=== PATIENT | female | born 1975 | race Caucasian/White ===

== ENCOUNTER 2019-08-22 14:35 | Outpatient (CLI) | payer OTHER, SELFPAY ==
--- NOTE | ~2019-08-22 | MM_ITS ---
EXAMINATION: MM screening [facility] BI w danuta HISTORY: Screening mammogram TECHNIQUE: Craniocaudal and mediolateral oblique 3-D tomosynthesis images were obtained and synthetic 2-D images were generated. CAD analysis was submitted and interpreted. COMPARISON: Comparison to multiple prior studies sequentially, with oldest reviewed study dated 10/2013. BREAST PARENCHYMAL COMPOSITION: There are scattered areas of fibroglandular density. FINDINGS: There is no evidence of suspicious mass, calcification, or architectural distortion to sugg est malignancy in either breast. There has been no suspicious interval change. IMPRESSION: 1. No mammographic evidence of malignancy. 2. Recommend routine screening mammography in one year. BI-RADS Category 1: Negative Reviewed, dictated and finalized at location A.
== END 2019-08-22 14:36 | disposition home or self-care (01) ==
LOC: ANHIMG 14:38
PROVIDERS: PCP Physician Assistant; Visit Provider Nurse Practitioner Family
DX: Z12.31 Encounter for screening mammogram for malignant neoplasm of breast (principal)
CPT/HCPCS: 77063; 77067

== ENCOUNTER 2019-09-06 12:43 | Outpatient (CLI) | payer OTHER, SELFPAY ==
--- NOTE | ~2019-09-06 | XR_ITS ---
XR knee LT 3V DATE: 09/06/2019 13:02 INDICATION: Acute left knee pain at lateral aspect of the patella. No injury. TECHNIQUE: 3 views including sunrise COMPARISON: None FINDINGS: No fracture or dislocation or joint effusion. No periosteal reaction or bone destruction. J oint spaces are preserved. No radiopaque intra-articular loose body or chondrocalcinosis. IMPRESSION: Negative Reviewed, dictated and finalized at location A. IMPRESSION: Negative
== END 2019-09-06 12:44 | disposition home or self-care (01) ==
LOC: ANHIMG 12:47
PROVIDERS: PCP Physician Assistant; Visit Provider Physician Assistant
DX: M25.562 Pain in left knee (principal)
CPT/HCPCS: 73562

== ENCOUNTER → 2019-09-27 10:46 | Outpatient (CLI) | payer OTHER, SELFPAY ==
--- NOTE | ~2019-09-27 | US_ITS ---
EXAMINATION: US transvaginal DATE: 09/27/2019 11:28 INDICATION: Pelvic pain. Suboptimal examination. Comparison:No prior studies for comparison. TECHNIQUE: Multiple transabdominal and endovaginal sonographic images of the pelvis performed. FINDINGS: The uterus measures 9.2 x 5 x 5.8 cm. The endometrial complex measures 7 mm. The right ovary measures 3.3 x 1.7 x 2.5 cm and the left ovary measures 2.4 x 1.8 x 2.4 cm. There ar e small follicles in each ovary. There is no free fluid in the pelvis. There are no abnormal masses seen on either side. IMPRESSION: 1. Normal pelvic ultrasound. Reviewed, dictated and finalized at location B.
== END ==
PROVIDERS: Visit Provider Nurse Practitioner
DX: R10.9 Unspecified abdominal pain (principal)
CPT/HCPCS: 76830

== ENCOUNTER → 2020-06-08 09:15 | Outpatient (CLI) | payer OTHER, SELFPAY ==
--- NOTE | ~2020-06-08 | MM_ITS ---
EXAMINATION: MM diagnostic nellie RT w danuta HISTORY: Pain in the subareolar aspect of the right breast TECHNIQUE: Craniocaudal, mediolateral, and mediolateral oblique 3-D tomosynthesis images of the right breast were performed and synthetic 2-D images were generated. CAD analysis was submitted and interp reted. High resolution limited right breast ultrasound was performed. COMPARISON: 08/22/2019, 07/23/2018, 07/08/2017 BREAST PARENCHYMAL COMPOSITION: There are scattered areas of fibroglandular density. FINDINGS: MAMMOGRAPHIC FINDINGS: There is no evidence of suspicious mass, calcification, or architectural distortion to suggest ming carr. There has been no suspicious interval change. No mammographic correlate is identified for the reported right breast pain. ULTRASOUND: There is no evidence of focal abnormal solid or cystic mass in the vicinity of the patient's reported breast pain. IMPRESSION: 1. No specific mammographic or sonographic correlate is identified for the patient's reported right b reast pain. Further evaluation at this time should be based on clinical assessment. Continued follow- up physical examination is recommended. 2. Routine screening mammography is recommended, due in three months on the left. BI-RADS Category 1: Negative Reviewed, dictated and finalized at location A. IMPRESSION: 1. No specific mammographic or sonographic correlate is identified for the carito ent's reported right breast pain. Further evaluation at this time should be bas ed on clinical assessment. Continued follow-up physical examination is recommen ded. 2. Routine screening mammography is recommended, due in three months on the lef t. BI-RADS Category 1: Negative
== END ==
PROVIDERS: Visit Provider Nurse Practitioner
DX: N64.4 Mastodynia (principal)
CPT/HCPCS: 76642; 77061; 77065; G0279

== ENCOUNTER → 2020-10-02 16:54 | Outpatient (CLI) | payer OTHER, SELFPAY ==
--- NOTE | ~2020-10-02 | MM_ITS ---
EXAMINATION: MM screening nellie BI w danuta HISTORY: Screening TECHNIQUE: Craniocaudal and mediolateral oblique 3-D tomosynthesis images were obtained and synthetic 2-D images were generated. CAD analysis was submitted and interpreted. COMPARISON: Comparison to multiple prior studies sequentially, with oldest reviewed study dated 11/28. BREAST PARENCHYMAL COMPOSITION: There are scattered areas of fibroglandular density. FINDINGS: There is no evidence of suspicious mass, calcification, or architectural distortion to sugg est malignancy in either breast. There has been no suspicious interval change. IMPRESSION: 1. No mammographic evidence of malignancy. 2. Recommend routine screening mammography in one year. BI-RADS Category 1: Negative Reviewed, dictated and finalized at location A.
== END ==
PROVIDERS: Visit Provider Nurse Practitioner
DX: Z12.31 Encounter for screening mammogram for malignant neoplasm of breast (principal)
CPT/HCPCS: 77063; 77067

== ENCOUNTER → 2021-03-06 09:03 | Outpatient (CLI) | payer OTHER, SELFPAY ==
--- NOTE | ~2021-03-06 | MR_ITS ---
EXAMINATION: MR foot RT wo/w con DATE: 03/06/2021 10:13 INDICATION: Ganglion cyst of the right foot and ankle. 3 months of right third toe pain. TECHNIQUE: Magnetic resonance imaging (MRI) of the right fore/mid foot was performed without and with 15 mL Multihance intravenous contrast. Sequences included axial, sagittal and coronal T1-weighted FS E, axial and coronal T2-weighted FS FSE, sagittal fluid sensitive FSE STIR, axial T1-weighted FS FSE and postcontrast T1-weighted FS FSE. COMPARISON: None FINDINGS: Bone alignment is normal. No fracture or pathologic marrow replacing process. Mild to moderate osteoa rthritis at the calcaneocuboid articulation with subarticular edema and cystlike changes underlying t he articular surface of the cuboid. Additional mild osteoarthritis at the first metatarsophalangeal j oint. Remaining joint spaces appear relatively preserved. No joint effusions, tenosynovitis, ganglion cyst or other abnormal fluid collections. Visualized portions of the flexor and extensor tendons are normal. The Lisfranc ligament complex as well as the lateral ligament complex at the intertarsal pha langeal and interphalangeal joints are normal. No asymmetric atrophy or abnormal signal of the intrin sic musculature of the foot. No abnormally enhancing masses identified. IMPRESSION: 1. 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 No etiology identified for reported chronic pain at the right third toe. Reviewed, dictated and finalized at [facility]. 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 Osteoarthritis, moderate at the calcaneocuboid joint and mild at the first m etatarsophalangeal joint. No etiology identified for reported chronic pain at t he right third toe.
== END ==
PROVIDERS: PCP Physician Assistant; Visit Provider Podiatrist Foot & Ankle Surgery
DX: M67.471 Ganglion, right ankle and foot (principal); S93.402A Sprain of unspecified ligament of left ankle, initial encounter; M19.071 Primary osteoarthritis, right ankle and foot
CPT/HCPCS: 73720; A9577

== ENCOUNTER → 2021-10-15 15:49 | Outpatient (CLI) | payer OTHER, SELFPAY ==
--- NOTE | ~2021-10-15 | MM_ITS ---
EXAMINATION: MM screening [facility] BI w danuta HISTORY: Screening TECHNIQUE: Craniocaudal and mediolateral oblique 3-D tomosynthesis images were obtained and synthetic 2-D images were generated. CAD analysis was submitted and interpreted. COMPARISON: Comparison to multiple prior studies sequentially, with oldest reviewed study dated 08/2016. BREAST PARENCHYMAL COMPOSITION: There are scattered areas of fibroglandular density. FINDINGS: There is no evidence of suspicious mass, calcification, or architectural distortion to sugg est malignancy in either breast. There has been no suspicious interval change. IMPRESSION: 1. No mammographic evidence of malignancy. 2. Recommend routine screening mammography in one year. BI-RADS Category 1: Negative Reviewed, dictated and finalized at location A.
== END ==
PROVIDERS: PCP Physician Assistant; Visit Provider Obstetrics & Gynecology Gynecology
DX: Z12.31 Encounter for screening mammogram for malignant neoplasm of breast (principal)
CPT/HCPCS: 77063; 77067

== ENCOUNTER → 2022-12-04 12:33 | Outpatient (CLI) | payer OTHER, SELFPAY ==
--- NOTE | ~2022-12-04 | MM_ITS ---
EXAMINATION: MM screening nellie BI w danuta HISTORY: Screening TECHNIQUE: Craniocaudal and mediolateral oblique 3-D tomosynthesis images were obtained and synthetic 2-D images were generated. CAD analysis was submitted and interpreted. COMPARISON: Comparison to multiple prior studies sequentially, with oldest reviewed study dated 07/08. BREAST PARENCHYMAL COMPOSITION: There are scattered areas of fibroglandular density. FINDINGS: There are new masses in the lower inner quadrant of the right breast anteriorly. The left b reast is stable without evidence for malignancy. IMPRESSION: 1. New right breast masses, lower inner quadrant. 2. Additional mammographic views and possible breast ultrasound are recommended. BI-RADS Category 0: Incomplete: Needs additional imaging evaluation. Reviewed, dictated and finalized at location A. IMPRESSION: 1. New right breast masses, lower inner quadrant. 2. Additional mammographic views and possible breast ultrasound are recommended . BI-RADS Category 0: Incomplete: Needs additional imaging evaluation.
== END ==
PROVIDERS: PCP Physician Assistant; Visit Provider Nurse Practitioner
DX: Z12.31 Encounter for screening mammogram for malignant neoplasm of breast (principal); R92.8 Other abnormal and inconclusive findings on diagnostic imaging of breast
CPT/HCPCS: 77063; 77067

== ENCOUNTER → 2022-12-30 14:15 | Outpatient (CLI) | payer OTHER, SELFPAY ==
--- NOTE | ~2022-12-30 | MMUS_ITS ---
EXAMINATION: MM diagnostic nellie RT w danuta, US breast RT limited HISTORY: Follow-up right breast mass TECHNIQUE: Additional 3-D tomosynthesis images of the right breast were performed and synthetic 2-D i mages were generated. CAD analysis was submitted and interpreted. High resolution Limited right breas t ultrasound was performed. COMPARISON: 12/04/2022 BREAST PARENCHYMAL COMPOSITION: Breast composed of scattered areas of fibroglandular density FINDINGS: MAMMOGRAPHIC FINDINGS: There is a focal mass in the lower inner quadrant of the right breast. There is a possible second mas s in the same quadrant nearby. There are no suspicious calcifications or architectural distortion. ULTRASOUND: Limited right breast ultrasound: At 3:00, 5 cm from the nipple, there is a 5 mm cyst. No other discre te solid or cystic masses are seen. IMPRESSION: 1. Benign cyst corresponds to mass in the lower inner quadrant of the right breast. Possible addition al mass without sonographic correlate at nearby location in the lower inner quadrant. 2. Recommend 6 month follow-up diagnostic right mammogram and ultrasound recommended. BI-RADS category 3, probably benign findings. Reviewed, dictated and finalized at location A. IMPRESSION: 1. Benign cyst corresponds to mass in the lower inner quadrant of the right pepe ast. Possible additional mass without sonographic correlate at nearby location in the lower inner quadrant. 2. Recommend 6 month follow-up diagnostic right mammogram and ultrasound recomm ended. BI-RADS category 3, probably benign findings.
== END ==
PROVIDERS: PCP Physician Assistant; Visit Provider Obstetrics & Gynecology Gynecology
DX: R92.8 Other abnormal and inconclusive findings on diagnostic imaging of breast (principal)
CPT/HCPCS: 76642; 77061; 77065; G0279

== ENCOUNTER → 2023-01-16 10:40 | Outpatient (CLI) | payer OTHER, SELFPAY ==
--- NOTE | ~2023-01-16 | US_ITS ---
EXAMINATION: US pelvic complete DATE: 01/16/2023 11:02 INDICATION: Enlarged uterus Comparison:09/27/2019 TECHNIQUE: Multiple transabdominal and endovaginal sonographic images of the pelvis performed. FINDINGS: The uterus measures 10.1 x 5.2 x 6 cm. The endometrial complex measures 5 mm. The right ovary measures 3.4 x 2 x 2.8 cm and the left ovary measures 2 x 1.2 x 1.7 cm. There are sm all follicles in each ovary. Normal doppler signal in both ovaries. There is no free fluid in the pelvis. There are no abnormal masses seen on either side. IMPRESSION: 1. Unremarkable pelvic ultrasound. Reviewed, dictated and finalized at location A.
== END ==
PROVIDERS: PCP Physician Assistant; Visit Provider Nurse Practitioner
DX: R10.2 Pelvic and perineal pain (principal); N85.2 Hypertrophy of uterus
CPT/HCPCS: 76856

== ENCOUNTER → 2023-05-15 11:20 | Outpatient (CLI) | payer OTHER, SELFPAY ==
--- NOTE | ~2023-05-15 | US_ITS ---
EXAMINATION: US transvaginal DATE: 05/15/2023 11:44 INDICATION: Pelvic pain. TECHNIQUE: Multiple transvaginal sonographic images of the pelvis were obtained. COMPARISON: Ultrasound 01/16/2023 FINDINGS: The uterus measures 9.1 x 5.1 x 5.5 cm. There is no free fluid in the pelvis. The endometrial complex measures 6 mm in thickness. The right ovary measures 2.4 x 2.1 x 2.6 cm. The left ovary measures 3.4 x 2.4 x 3.2 cm. There is normal vascular flow in the ovaries. IMPRESSION: 1. Normal pelvis. Reviewed, dictated and finalized at location A. 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 Normal pelvis.
== END ==
PROVIDERS: PCP Nurse Practitioner; Visit Provider Nurse Practitioner
DX: R10.2 Pelvic and perineal pain (principal)
CPT/HCPCS: 76830

== ENCOUNTER 2023-06-26 08:40 | Outpatient (CLI) | payer OTHER, SELFPAY ==
--- NOTE | ~2023-06-26 | MMUS_ITS ---
EXAMINATION: MM diagnostic nellie RT w danuta, US breast RT complete HISTORY: Follow-up right breast masses TECHNIQUE: Additional 3-D tomosynthesis images of the right breast were performed and synthetic 2-D i mages were generated. CAD analysis was submitted and interpreted. High resolution complete right jackie st ultrasound was performed. COMPARISON: Comparison to multiple prior studies sequentially, with oldest reviewed study dated 04/2021. BREAST PARENCHYMAL COMPOSITION: Not dense: There are scattered areas of fibroglandular density. FINDINGS: MAMMOGRAPHIC FINDINGS: There are masses in the lower inner quadrant of the right breast with similar appearance to 12/04/2022 examination. No new masses, calcifications or architectural distortion in the right breast to sugges t malignancy. ULTRASOUND: Complete US of all 4 quadrants of the right breast and retroareolar region was reviewed. At 1:00, 4 c m from the nipple there is a 3 mm cyst. At 3:00, 5 cm from the nipple, there is a 5 mm cyst. At 3:00, 3 cm from the nipple, there is a 4 mm cyst. At 3:00, 2 cm from the nipple, there is a 3 mm cyst. At 10:00, 12 cm from the nipple, there is an intramammary lymph node measuring 5 mm. No suspicious jill s to suggest malignancy. IMPRESSION: 1. No evidence for malignancy in the right breast. Benign findings. 2. Routine yearly screening mammogram and regular clinical breast examination are recommended. BI-RADS Category 2: Benign finding(s). Reviewed, dictated and finalized at location A. IMPRESSION: 1. No evidence for malignancy in the right breast. Benign findings. 2. Routine yearly screening mammogram and regular clinical breast examination a re recommended. BI-RADS Category 2: Benign finding(s).
== END 2023-06-26 08:41 ==
LOC: MICIMG 08:41
PROVIDERS: PCP Physician Assistant; Visit Provider Nurse Practitioner
DX: R92.8 Other abnormal and inconclusive findings on diagnostic imaging of breast (principal)
CPT/HCPCS: 76641; 77061; 77065; G0279

== ENCOUNTER 2024-02-17 08:54 | Outpatient (CLI) | payer OTHER, SELFPAY ==
--- NOTE | ~2024-02-17 | MMUS_ITS ---
EXAMINATION: MM diagnostic nellie RT w danuta, US breast RT limited HISTORY: Follow-up right breast mass TECHNIQUE: Additional 3-D tomosynthesis images of the right breast were performed and synthetic 2-D i mages were generated. CAD analysis was submitted and interpreted. High resolution Limited right breas t ultrasound was performed. COMPARISON: Comparison to multiple prior studies sequentially, with oldest reviewed study dated 10/02. BREAST PARENCHYMAL COMPOSITION: Not dense: There are scattered areas of fibroglandular density. FINDINGS: MAMMOGRAPHIC FINDINGS: There is a cluster of nodular asymmetries medially in the right breast on spot CC view, although only one discrete mass is seen in the lower aspect of the right breast on MLO and mediolateral views. The re are no suspicious calcifications or architectural distortion. ULTRASOUND: Limited right breast ultrasound: At 3:00, 3 cm from the nipple, there is a 7 mm cyst corresponding to the mammographic finding. No other masses are identified. IMPRESSION: 1. Benign cyst measuring 7 mm identified at 3:00, 3 cm from the nipple corresponding to mass seen on mammography. Additionally asymmetries in the right breast medially are likely benign. 2. Recommend 6 month follow-up diagnostic right mammogram BI-RADS category 3, probably benign findings. Reviewed, dictated and finalized at location B. 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 Benign cyst measuring 7 mm identified at 3:00, 3 cm from the nipple correspo nding to mass seen on mammography. Additionally asymmetries in the right breast medially are likely benign. 2. Recommend 6 month follow-up diagnostic right mammogram BI-RADS category 3, probably benign findings.
== END 2024-02-17 08:55 | disposition home or self-care (01) ==
PROVIDERS: PCP Physician Assistant; Visit Provider Obstetrics & Gynecology Gynecology
DX: R92.8 Other abnormal and inconclusive findings on diagnostic imaging of breast (principal); N60.01 Solitary cyst of right breast; N64.89 Other specified disorders of breast
CPT/HCPCS: 76642; 77061; 77065; G0279

== ENCOUNTER 2024-08-05 10:17 | Outpatient (CLI) | payer OTHER, SELFPAY ==
--- OUTSIDE RECORDS SUMMARY | 2024-08-05 10:22 | XMS_ITS | Clinical Summary ---
Author Organization [facility] Address [address] [place] [address] Care Team Providers Care Motel Maid Name Role Phone Unavailable Primary Care Provider Unavailabl e Source Comments [facility],non-owned Affiliates and Associated Physician Practices is amultiple site organization consisting of ambulatory clinics and hospital sitesin [place], [place], [place] and [place]. This disclosure is being madepursuant to the Care Everywhere program and may not contain all information available regarding this patient. Last updated 17.[facility] Allergies Active Allergy Reactions Criticality Noted Date Comments Pseudoephedrine Sulfate Other High 04/16/2012 Blood pressure rises with Sudafed Medications * Be aware that medications may not be up to date on this document. Alwaysverify current medications with the patient. No known medications Social History Tobacco Use Types Packs/Day Years Used Date Smoking Tobacco: Never Smokeless Tobacco: Never Alcohol Use Standard Drinks/Week Comments Never 0 (1 standard drink = 0.6 oz pur e alcohol) Comments No Sex and Gender Information Value Date Recorded Sex Assigned at Not on file Legal Sex Female 11:57 AM CDT Gender Identity Not on file Sexual Orientation Not on file Last Filed Vital Signs Vital Sign Reading Time Taken Comments Blood Pressure 131/74 10/05/2020 11:15 PM CDT Pulse 68 10/05/2020 11:15 PM CDT Temperature 36.8 C (98.2 F) 10/05/2020 9:53 PM CDT Respiratory Rate 20 10/05/2020 11:15 PM CDT Oxygen Saturation 98% 10/05/2020 11:15 PM CDT Inhaled Oxygen Concentration - - Weight 74.6 kg (164 lb 7.4 oz) 10/05/2020 9:53 P M CDT Height 157.5 cm (5' 2 ) 10/05/2020 9:53 PM CDT Body Mass Index 30.08 10/05/2020 9:53 PM CDT Plan of Treatment Health Maintenance Due Date Last Done Comments COLOGUARD (AGES 45-75) - COLON CA SCREENING 1976 COLON MONITORING 1976 COLONOSCOPY - COLON CA SCREENING 1976 CT COLONOGRAPHY - COLON CA SCREENING 1976 Colorectal Cancer Screening 1976 FIT - COLON CA SCREENING 1976 FLEX SIG - COLON CA SCREENING 1976 LIPID TESTING 1976 MAMMOGRAM 1976 HIV SCREENING 06/18/1991 HEPATITIS C SCREENING 06/13/1994 DTAP/TDAP/TD VACCINES (1 - Tdap) 06/18/1995 HEPATITIS B VACCINE (1 of 3 - 19+ 3-dose series) 06/18/1995 COVID-19 VACCINE (1 - season) 2023 DEPRESSION SCREENING 03/16/2024 INFLUENZA VACCINE (Season Ended) 2024 12/23/2019, 01/03/2019, 01/12/2018, Additional history exists ZOSTER VACCINE (1 of 2) 2026 HIB VACCINE Aged Out No longer eligi ble based on patient's age to complete this topic HPV VACCINE Aged Out No longer eligi ble based on patient's age to complete this topic MENINGOCOCCAL (Group B) VACCINE SHARED DECISION-MAKING Aged Out No longer eligible based on patient's age to complete this topic MENINGOCOCCAL GROUPS A/C/Y/W VACCINE Aged Out No longer eligible based on patient's age to complete this topic PNEUMOCOCCAL VACCINE Aged Out No long er eligible based on patient's age to complete this topic Insurance [facility]
--- OUTSIDE RECORDS SUMMARY | 2024-08-05 10:22 | XMS_ITS | Referral Summary ---
Author Organization [facility] [place] [address] [place] [address] [place] [id number] Care Team Providers Care Rotary Cutter Operator Name Role Phone Lori Shaw Primary Care Provider [phone] Cooper Marquis MD [phone] Encounters Date Type Department Care Team Description 07/13/2024 Nurse Triage [address] [place] [phone] Lori Shaw PA 07/08/2024 Nurse Triage [address] [place] [phone] Lori Shaw PA 07/05/[address] [place] [phone] Lori Shaw PA Symptom Based Call 05/10/2024 9:00 AM AIR TWIST OPERATOR Office Visit [address] [place] [phone] Lori Shaw PA Acquired hypothyroidism (Primary Dx); Pre-diabetes; Mixed hyperlipidemia; Essential hypertension; Morbid obesity (HCC); BMI 36.0-36.9,adult from Last 3 Months Allergies No known active allergies Medications ACCU-CHEK SOFTCLIX LANCETS lancets CHECK BLOOD GLUCOSE ONCE A DAY 3 9 Active cholecalciferol (VITAMIN D-3) 2000 unit capsule 1 capsule (2,000 Units total) daily Active multivit with min-folic acid 200 mcg tablet,chewable Rx: Multivitamin Adult - Tablet Active vitamin E (AQUASOL E) 200 unit capsule Take 1 capsule (200 Units total) by mouth daily Active cetirizine (ZyrTEC) 10 mg chewable tablet Take 1 tablet (10 mg total) by mouth daily Active meloxicam (MOBIC) 15 mg tablet Take 1 tablet (15 mg total) by mouth daily 90 tablet 1 4 Active Accu-Chek Guerita Plus test strp stripIndication s:Pre-diabetes USE TO CHECK BLOOD GLUCOSE DAILY 100 strip 3 4 Active levothyroxine (SYNTHROID) 75 mcg tablet Take 1 tablet (75 mcg total) by mouth 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 The BMI is above average. BMI management plan is completed. BMI Follow-up includes: nutrition counseling, exercise counseling and education provided. Patient has an obesity-related condition (not limited to: hypertension, obstructive sleep apnea, osteoarthritis, hyperlipidemia, diabetes, etc.). Therefore, morbid obesity may be documented for patients with a BMI between 35.00-39.99. Assessment & Plan (05/15/2024 8:54 PM AIR TWIST OPERATOR): Discussed the patient's BMI. The BMI is above average. BMI management plan is completed. BMI Follow-up includes: nutrition counseling, exercise counseling and education provided. Patient has an obesity-related condition (not limited to: hypertension, obstructive sleep apnea, osteoarthritis, hyperlipidemia, diabetes, etc.). Therefore, morbid obesity may be documented for patients with a BMI between 35.00-39.99. HUNTER positive 07/16/2023 Assessment & Plan (05/15/2024 8:52 PM AIR TWIST OPERATOR): Continue to follow with [facility]. Assessment & Plan (03/17/2024 11:31 AM AIR TWIST OPERATOR): Sidra is a pleasant 48-year-old female that initially presented to our office with a positive HUNTER 1:1280 in a centromere pattern. Has had longstanding history of Raynaud's syndrome with symptoms that have been mild and manageable since last visit. No digital sores. Otherwise, noted recent GERD relieved with Tums/Pepcid p.r.n.. No evidence for telangiectasias and sclerodactyly. No significant peripheral joint complaints. Given her high titer HUNTER in a centromere pattern, will continue to monitor at this time. Overall, doing fairly well. Will have her follow up in 12 months. Sooner if needed. Seen with Dr. Marquis. Assessment & Plan (09/14/2023 8:54 AM CDT): Sidra is a pleasant 48-year-old female presenting with recent labs displaying a positive HUNTER 1:1280 in a centromere pattern. Lab work was obtained after she noted a history of fatigue along with a known history of Raynaud's syndrome. Has had some discomfort over the R foot 2nd toe without inflammatory symptoms. Denies significant peripheral joint complaints and/or prolonged AM stiffness. Denies GERD. No evidence for telangiectasias and sclerodactyly. Other than Raynaud's and recent HUNTER in a centromere pattern, she does not possess any objective and/or subjective findings for crest syndrome. Avise 09/02/2023: Positive HUNTER 1: 2560 centromere, high positive centromere protein B, low positive rheumatoid factor IgM 5.9, normal C3/C4 complements. At this time, will monitor given centromere ab and raynaud's history. Fu 6 months. Sooner if needed. Seen with Dr. Marquis. Assessment & Plan (09/01/2023 12:54 PM CDT): Sidra is a pleasant 48-year-old female presenting with recent labs displaying a positive HUNTER 1:1280 in a centromere pattern. Lab work was obtained after she noted a history of fatigue along with a known history of Raynaud's syndrome. Denies significant peripheral joint complaints and/or prolonged AM stiffness. Denies GERD. No evidence for telangiectasias and sclerodactyly. Other than Raynaud's and recent HUNTER in a centromere pattern, she does not possess any objective and/or subjective findings for crest syndrome. Will re-evaluate with an Avise panel. Depending on serologies, will likely monitor at this time. Follow-up 2 weeks. Sooner if needed. Seen with Dr. Marquis. Assessment & Plan (07/16/2023 12:25 PM CDT): HUNTER positive 1:1280. Centromere pattern noted upon ANDERS. Patient notes history of Raynaud's. Refer to Rheumatology - Dr. Marquis. Hirsutism 06/24/2023 Assessment & Plan (06/24/2023 5:40 PM CDT): Suspicion for PCOS. Check labs as pt is experiencing trouble with wt loss and is having symptoms of hirsutism. Will develop plan when labs available. Medial epicondylitis of elbow, right 04/04/2023 Assessment & Plan (11/19/2023 10:41 AM CDT): Persistent medial epicondylitis symptoms. Following with ortho. She is in physical therapy. She is on an NSAID. Continue icing to the area. She has follow-up in the next few weeks for further evaluation Assessment & Plan (06/24/2023 5:41 PM CDT): Seen hand specialist. Continue per their recommendations. Assessment & Plan (04/04/2023 12:15 AM AIR TWIST OPERATOR): Discussed lateral epicondylitis and pathophys. Encouraged to decrease any repetitive motion, use ice to the area multiple times a day and NSAID daily and a forearm brace. If symptoms persist over the next 3.4 weeks will refer to Ortho. Annual physical exam 09/07/2022 Assessment & Plan (10/10/2023 10:14 PM CDT): Encouraged healthy lifestyle, good nutrition and exercise. Encouraged Calcium and Vitamin D and weight bearing exercise for bone health. Reviewed immunizations Reviewed age appropirate screenings. Assessment & Plan (09/07/2022 10:18 PM CDT): Encouraged healthy lifestyle, good nutrition and exercise. Encouraged Calcium and Vitamin D and weight bearing exercise for bone health. Reviewed immunizations Reviewed age appropirate screenings. BMI 36.0-36.9,adult 08/28/2022 Assessment & Plan (05/10/2024 9:00 AM AIR TWIST OPERATOR): Discussed the patient's BMI. The BMI is above average. BMI management plan is completed. BMI Follow-up includes: nutrition counseling, exercise counseling and education provided. Assessment & Plan (04/26/2024 11:40 AM AIR TWIST OPERATOR): Discussed the patient's BMI. The BMI is above average. BMI management plan is completed. BMI Follow-up includes: nutrition counseling, exercise counseling and education provided. Assessment & Plan (11/19/2023 10:41 AM CDT): Discussed the patient's BMI. The BMI is above average. BMI management plan is completed. BMI Follow-up includes: nutrition counseling, exercise counseling and education provided. Assessment & Plan (08/10/2023 8:31 PM CDT): Patient educated on importance of losing weight and risk of comorbidities associated with obesity. Encouraged to adopt a diet like the Mediterranean diet that is rich in fruits, vegetables, healthy fats, and protein. Recommended daily exercise. Patient was concerned because her computer technology trainer at the gym is quitting. She was advised to exercise in a way that is enjoyable to her. Assessment & Plan (08/28/2022 10:42 AM CDT): Discussed the patient's BMI. The BMI is above average. BMI management plan is completed. BMI Follow-up includes: nutrition counseling, exercise counseling and education provided. Fatigue 02/02/2022 Assessment & Plan (05/15/2024 8:53 PM AIR TWIST OPERATOR): Probably multifactorial. Check labs and followup to re-evaluate Assessment & Plan (06/24/2023 5:39 PM CDT): Check labs. Assessment & Plan (02/02/2022 9:48 AM AIR TWIST OPERATOR): Probably multifactorial. Check labs and followup to re-evaluate Anxiety 10/05/2021 Assessment & Plan (11/19/2023 10:40 AM CDT): Symptoms have been stable with Wellbutrin XL 300. Continue same dose Assessment & Plan (10/10/2023 10:15 PM CDT): This is a significant, separately identifiable problem that was evaluated and managed on the same day as the wellness exam Increased symptoms. Struggling with exercising regularly, eating and making good choices, as well as sadness with her son leaving as he is moving to [place] for a new job. Had been on Wellbutrin XL 300 with great control but wanted to try to decrease the dose. Willing to increase. Continue with counseling Assessment & Plan (07/16/2023 12:23 PM CDT): Anxiety well-controlled today. Patient instructed to continue Wellbutrin daily and seeing counselor. Assessment & Plan (06/24/2023 5:36 PM CDT): Continue BupropionXL 150 mg. Pt discussed discontinuation, but agreed to continue until readdressing at next visit. Assessment & Plan (02/15/2023 12:07 AM AIR TWIST OPERATOR): Discussed tapering down medications. Will begin by decreasing the Wellbutrin from 300 down to 150. New prescription sent. Will reassess again in the spring and discuss continued taper if appropriate. Her symptoms increase or she has any problems she is to call immediately. Assessment & Plan (09/07/2022 10:18 PM CDT): Stable with Wellbutrin XL 300 Assessment & Plan (02/02/2022 9:48 AM AIR TWIST OPERATOR): Stable with Wellbutrin XL 150. Continue to monitor as continuing to work through grief Assessment & Plan (12/25/2021 10:18 PM CDT): Patient is struggling with grief right now. Tolerating enrolled Wellbutrin without problems. Will go ahead and continue at this point and reassess in a month. She has increased symptoms or any suicidal homicidal thoughts she is to call. She is in agreement with the plan. Assessment & Plan (11/02/2021 1:27 PM CDT): Patient is still experiencing some anxiety and stressors at home. She has tolerated the Wellbutrin XL 150 without difficulty. Increase to 300. May take 2 of the 150 mg tablets until they are gone and then will increase to 1 --- 300 mg tablet. Will follow-up in 6-8 weeks to reassess Assessment & Plan (10/05/2021 3:34 PM CDT): Patient still seems to have anxiety was started on Wellbutrin by her computer programming supervisor so will continue with it. Discussed other neurotransmitters in May a combined them at follow-up in a few weeks she may benefit from little serotonin. No history of seizures. Reviewed risks benefits alternatives side effects and proper use. Make sure she continues to take it 1st thing in the morning. History of bilateral tubal ligation 09/25/2021 Encounter for screening colonoscopy 08/26/2021 Assessment & Plan (08/26/2021 12:14 PM CDT): Patient prefers colonoscopy for colon cancer screening. Refer to Dr. Quintero Right foot pain 12/29/2020 Assessment & Plan (08/26/2021 12:13 PM CDT): Patient notes a wart on 1 of her toes. She will call Dr. Breonna Babcock's office for treatment as she is already established with her. Assessment & Plan (06/23/2021 8:58 PM CDT): Followup with Dr. Babcock Assessment & Plan (12/29/2020 8:19 PM CDT): Suspected neuroma versus other etiology. She has an appoint with Dr. Bacbock, podiatry, and will await her recommendations. Discussed with her utilizing mole skin to create a padding with the donut hole in the middle to try to offload that pressure point until it can be further evaluated. Acne vulgaris 04/14/2019 Assessment & Plan (10/17/2019 10:25 PM CDT): Stable without medication Assessment & Plan (04/14/2019 10:15 PM AIR TWIST OPERATOR): Cleocin T Gel to the neck/face as needed. Essential hypertension 08/28/2018 Assessment & Plan (05/15/2024 11:01 PM AIR TWIST OPERATOR): Bp is stable/in acceptable range for any co-morbidities. Encouraged to limit sodium intake and exercise for weight control. Currently controlled without medication Assessment & Plan (10/10/2023 10:14 PM CDT): Bp is stable/in acceptable range for any co-morbidities. Encouraged to limit sodium intake and exercise for weight control. Managed without medication Assessment & Plan (06/24/2023 5:39 PM CDT): Continue exercise and diet/weight management. Currently managed without medication Assessment & Plan (09/07/2022 10:18 PM CDT): Bp is stable/in acceptable range for any co-morbidities. Encouraged to limit sodium intake and exercise for weight control. Stable without medication Assessment & Plan (02/02/2022 9:47 AM AIR TWIST OPERATOR): Bp is stable/in acceptable range for any co-morbidities. Encouraged to limit sodium intake and exercise for weight control. Stable without medication after weight loss Assessment & Plan (08/26/2021 12:13 PM CDT): Bp is stable/in acceptable range for any co-morbidities. Encouraged to limit sodium intake and exercise for weight control. Currently stable without medication since her weight loss. Assessment & Plan (06/23/2021 8:57 PM CDT): Bp is stable/in acceptable range for any co-morbidities. Encouraged to limit sodium intake and exercise for weight control. Currently stable without medication after weight loss. Assessment & Plan (10/17/2019 10:25 PM CDT): Bp is stable/in acceptable range for any co-morbidities. Encouraged to limit sodium intake and exercise for weight control. Stable without medication Assessment & Plan (04/14/2019 10:14 PM AIR TWIST OPERATOR): Stable without medication Assessment & Plan (10/17/2018 12:52 AM CDT): Bp is stable/in acceptable range for any co-morbidities. Encouraged to limit sodium intake and exercise for weight control. Assessment & Plan (08/28/2018 3:07 PM CDT): Very well controlled--may be too well controlled. Take readings at home, especially when she is feeling bad and see if she is hypotensive. If there is a correlation, then will cut the enalapril in half or maybe even discontinue. Eat regular meals. Check labs. Pre-diabetes 08/28/2018 Assessment & Plan (05/15/2024 11:01 PM AIR TWIST OPERATOR): Pre-diabetes/hyperglycemia is a precursor to Dm. Stressed importance of working on diet (decrease your simple sugars and one carbohydrate with each meal) and increase you exercise to achieve weight loss and this will help prevent you from progressing to diabetes. Assessment & Plan (05/15/2024 8:53 PM AIR TWIST OPERATOR): Pre-diabetes/hyperglycemia is a precursor to Dm. Stressed importance of working on diet (decrease your simple sugars and one carbohydrate with each meal) and increase you exercise to achieve weight loss and this will help prevent you from progressing to diabetes. Assessment & Plan (11/19/2023 10:40 AM CDT): Pre-diabetes/hyperglycemia is a precursor to Dm. Stressed importance of working on diet (decrease your simple sugars and one carbohydrate with each meal) and increase you exercise to achieve weight loss and this will help prevent you from progressing to diabetes. Assessment & Plan (10/10/2023 10:15 PM CDT): Pre-diabetes/hyperglycemia is a precursor to Dm. Stressed importance of working on diet (decrease your simple sugars and one carbohydrate with each meal) and increase you exercise to achieve weight loss and this will help prevent you from progressing to diabetes. Assessment & Plan (06/24/2023 5:42 PM CDT): Check labs. Continue diet and calorie tracking and exercising with personal lines advisor. Assessment & Plan (09/07/2022 10:17 PM CDT): Pre-diabetes/hyperglycemia is a precursor to Dm. Stressed importance of working on diet (decrease your simple sugars and one carbohydrate with each meal) and increase you exercise to achieve weight loss and this will help prevent you from progressing to diabetes. Assessment & Plan (02/02/2022 9:47 AM AIR TWIST OPERATOR): Pre-diabetes/hyperglycemia is a precursor to Dm. Stressed importance of working on diet (decrease your simple sugars and one carbohydrate with each meal) and increase you exercise to achieve weight loss and this will help prevent you from progressing to diabetes. Assessment & Plan (11/02/2021 1:25 PM CDT): Patient wants to continue to be able to randomly check her sugars with her prediabetes. Encouraged that a few times a week would be appropriate. Will send strips. Assessment & Plan (08/26/2021 12:13 PM CDT): Pre-diabetes/hyperglycemia is a precursor to Dm. Stressed importance of working on diet (decrease your simple sugars and one carbohydrate with each meal) and increase you exercise to achieve weight loss and this will help prevent you from progressing to diabetes. Assessment & Plan (06/23/2021 8:57 PM CDT): Pre-diabetes/hyperglycemia is a precursor to Dm. Stressed importance of working on diet (decrease your simple sugars and one carbohydrate with each meal) and increase you exercise to achieve weight loss and this will help prevent you from progressing to diabetes. Assessment & Plan (11/25/2020 3:13 PM CDT): Pre-diabetes/hyperglycemia is a precursor to Dm. Stressed importance of working on diet (decrease your simple sugars and one carbohydrate with each meal) and increase you exercise to achieve weight loss and this will help prevent you from progressing to diabetes. A1c is low pre-DM since loosing weight. Assessment & Plan (10/17/2019 10:25 PM CDT): Pre-diabetes is a precursor to Dm. Stressed importance of working on diet (decrease your simple sugars and one carbohydrate with each meal) and increase you exercise to achieve weight loss and this will help prevent you from progressing to diabetes. Assessment & Plan (04/14/2019 10:13 PM AIR TWIST OPERATOR): Pre-diabetes is a precursor to Dm. Stressed importance of working on diet (decrease your simple sugars and one carbohydrate with each meal) and increase you exercise to achieve weight loss and this will help prevent you from progressing to diabetes. Assessment & Plan (10/17/2018 12:52 AM CDT): Pre-diabetes is a precursor to Dm. Stressed importance of working on diet (decrease your simple sugars and one carbohydrate with each meal) and increase you exercise to achieve weight loss and this will help prevent you from progressing to diabetes. Assessment & Plan (08/28/2018 3:08 PM CDT): Pre-diabetes is a precursor to Dm. Stressed importance of working on diet (decrease your simple sugars and one carbohydrate with each meal) and increase you exercise to achieve weight loss and this will help prevent you from progressing to diabetes. Right sided sciatica 04/13/2017 Assessment & Plan (11/25/2020 3:15 PM CDT): Encouraged NSAIDS (if able to safely tolerate) or Tylenol. Topical preparations like Lidocaine patches, Biofreeze, ICYHOT etc as needed. Heat, stretching Avoid long periods of sitting/laying. Encouraged PT. Followup if has any problems controlling bowels or bladder or if sxs worsen. Acquired hypothyroidism 04/08/2016 Overview (10/09/2020): replaced Assessment & Plan (05/15/2024 11:01 PM AIR TWIST OPERATOR): Continue levothyroxine 75 mcg. Monitor labs. Assessment & Plan (05/15/2024 8:52 PM AIR TWIST OPERATOR): Continue levothyroxine 75 mcg. Monitor labs. Assessment & Plan (11/19/2023 10:40 AM CDT): Continue levothyroxine 75 mcg. Monitor labs. Assessment & Plan (10/10/2023 10:15 PM CDT): Continue levothyroxine. Monitor labs. Assessment & Plan (06/24/2023 5:35 PM CDT): Check TSH levels and continue Levothyroxine. Assessment & Plan (09/07/2022 10:19 PM CDT): Continue with levothyroxine 75 mcg. Monitor labs Assessment & Plan (02/02/2022 9:47 AM AIR TWIST OPERATOR): Continue levothyroxine. Monitor labs. Assessment & Plan (10/05/2021 3:33 PM CDT): Continue levothyroxine. Monitor labs. Assessment & Plan (08/26/2021 12:13 PM CDT): Continue levothyroxine. Monitor labs. Assessment & Plan (06/23/2021 8:57 PM CDT): Continue levothyroxine. Monitor labs. Assessment & Plan (11/25/2020 3:10 PM CDT): Continue levothyroxine. Monitor labs. Assessment & Plan (10/17/2019 10:25 PM CDT): Continue levothyroxine Assessment & Plan (04/14/2019 10:13 PM AIR TWIST OPERATOR): Continue replacement. Labs are stable. Assessment & Plan (10/17/2018 12:52 AM CDT): Labs are stable. Continue Levothyroxine. Refills sent Assessment & Plan (08/28/2018 3:08 PM CDT): Check labs. Continue levothyroxine Hyperlipidemia 04/08/2016 Overview (10/09/2020): on statin Assessment & Plan (05/15/2024 11:01 PM AIR TWIST OPERATOR): Encouraged patient to follow low fat/low chol diet like the Mediterranean diet. Increase good fats in the diet. Increase exercise. Monitor labs as needed. Continue simvastatin Assessment & Plan (05/15/2024 8:53 PM AIR TWIST OPERATOR): Encouraged patient to follow low fat/low chol diet like the Mediterranean diet. Increase good fats in the diet. Increase exercise. Monitor labs as needed. Continue simvastatin Assessment & Plan (10/10/2023 10:16 PM CDT): Encouraged patient to follow low fat/low chol diet like the Mediterranean diet. Increase good fats in the diet. Increase exercise. Monitor labs as needed. Continue simvastatin Assessment & Plan (06/24/2023 5:40 PM CDT): Check labs. Assessment & Plan (09/07/2022 10:17 PM CDT): Encouraged patient to follow low fat/low chol diet like the Mediterranean diet. Increase good fats in the diet. Increase exercise. Monitor labs as needed. Assessment & Plan (02/02/2022 9:48 AM AIR TWIST OPERATOR): Encouraged patient to follow low fat/low chol diet like the Mediterranean diet. Increase good fats in the diet. Increase exercise. Monitor labs as needed. Continue statin Assessment & Plan (08/26/2021 12:13 PM CDT): Encouraged patient to follow low fat/low chol diet like the Mediterranean diet. Increase good fats in the diet. Increase exercise. Monitor labs as needed. Continue simvastatin Assessment & Plan (06/23/2021 8:58 PM CDT): Encouraged patient to follow low fat/low chol diet like the Mediterranean diet. Increase good fats in the diet. Increase exercise. Monitor labs as needed. Continue statin Assessment & Plan (11/25/2020 3:10 PM CDT): Encouraged patient to follow fat/low chol diet like the Mediterranean diet. Increase good fats in the diet. Increase exercise. Monitor labs as needed. Continue statin Resolved Problems Problem Noted Date Diagnosed Date Resolved Date BMI 32.0-32.9,adult 07/16/2023 07/16/19 24 BMI 33.0-33.9,adult 08/28/2022 04/03/19 24 Assessment & Plan (02/11/2023 2:54 PM AIR TWIST OPERATOR): Discussed the patient's BMI. The BMI is above average. BMI management plan is completed. BMI Follow-up includes: nutrition counseling, exercise counseling and education provided. Assessment & Plan (08/28/2022 10:42 AM CDT): Discussed the patient's BMI. The BMI is above average. BMI management plan is completed. BMI Follow-up includes: nutrition counseling, exercise counseling and education provided. Flu vaccine need 12/25/2021 02/02/2022 Assessment & Plan (12/25/2021 10:18 PM CDT): Updated in the office today Obesity (BMI 30.0-34.9) 09/25/202109/14 Assessment & Plan (10/10/2023 10:16 PM CDT): Discussed the patient's BMI. The BMI is above average. BMI management plan is completed. BMI Follow-up includes: nutrition counseling, exercise counseling and education provided. Assessment & Plan (07/16/2023 12:24 PM CDT): Patient educated on importance of losing weight and risk of comorbidities associated with obesity. Encouraged to adopt a diet like the Mediterranean diet that is rich in fruits, vegetables, healthy fats, and protein. Recommended daily exercise. Patient was concerned because her computer technology trainer at the gym is quitting. She was advised to exercise in a way that is enjoyable to her. Assessment & Plan (06/24/2023 5:41 PM CDT): Discussed weight loss and mentioned use of GLPs. Encouraged to continue exercise with computer technology trainer and use of MyFitnessPal for calorie tracking. Assessment & Plan (04/04/2023 12:15 AM AIR TWIST OPERATOR): Discussed the patient's BMI. The BMI is above average. BMI management plan is completed. BMI Follow-up includes: nutrition counseling, exercise counseling and education provided. Assessment & Plan (02/11/2023 2:55 PM AIR TWIST OPERATOR): Discussed the patient's BMI. The BMI is above average. BMI management plan is completed. BMI Follow-up includes: nutrition counseling, exercise counseling and education provided. Assessment & Plan (02/02/2022 9:49 AM AIR TWIST OPERATOR): Discussed the patient's BMI. The BMI is above average. BMI management plan is completed. BMI Follow-up includes: nutrition counseling, exercise counseling and education provided. Assessment & Plan (12/25/2021 10:17 PM CDT): Discussed the patient's BMI. The BMI is above average. BMI management plan is completed. BMI Follow-up includes: nutrition counseling, exercise counseling and education provided. Assessment & Plan (11/02/2021 1:26 PM CDT): Discussed the patient's BMI. The BMI is above average. BMI management plan is completed. BMI Follow-up includes: nutrition counseling, exercise counseling and education provided. Continue with monitoring intake portion control and increasing exercise. Will see if the Wellbutrin helps give her little more energy to be able to work towards achieving these goals with weight loss. Assessment & Plan (10/05/2021 3:33 PM CDT): Obesity is unchanged. Discussed the patient's BMI. The BMI is above average. BMI management plan is completed. BMI Follow-up includes: nutrition counseling, exercise counseling and education provided. Encouraged her to just try to get restarted. Start monitoring her intake with my fitness Pal. Discussed other books related to benson as the seems to be part of her issue of getting restarted also. Encouraged following up in the office for accountability in 2 months or sooner if she has problems or concerns. BMI 33.0-33.9,adult 09/25/2021 11/19/19 Assessment & Plan (10/10/2023 10:16 PM CDT): Discussed the patient's BMI. The BMI is above average. BMI management plan is completed. BMI Follow-up includes: nutrition counseling, exercise counseling and education provided. Assessment & Plan (07/16/2023 12:24 PM CDT): Patient educated on importance of losing weight and risk of comorbidities associated with obesity. Encouraged to adopt a diet like the Mediterranean diet that is rich in fruits, vegetables, healthy fats, and protein. Recommended daily exercise. Patient was concerned because her computer technology trainer at the gym is quitting. She was advised to exercise in a way that is enjoyable to her. Assessment & Plan (06/24/2023 5:37 PM CDT): Discussed weight loss and mentioned use of GLPs. Encouraged to continue exercise with computer technology trainer and use of MyFitnessPal for calorie tracking. Assessment & Plan (04/04/2023 12:15 AM AIR TWIST OPERATOR): Discussed the patient's BMI. The BMI is above average. BMI management plan is completed. BMI Follow-up includes: nutrition counseling, exercise counseling and education provided. Assessment & Plan (02/02/2022 9:49 AM AIR TWIST OPERATOR): Discussed the patient's BMI. The BMI is above average. BMI management plan is completed. BMI Follow-up includes: nutrition counseling, exercise counseling and education provided. Assessment & Plan (12/25/2021 10:17 PM CDT): Discussed the patient's BMI. The BMI is above average. BMI management plan is completed. BMI Follow-up includes: nutrition counseling, exercise counseling and education provided. Assessment & Plan (11/02/2021 1:26 PM CDT): Discussed the patient's BMI. The BMI is above average. BMI management plan is completed. BMI Follow-up includes: nutrition counseling, exercise counseling and education provided. Assessment & Plan (09/25/2021 2:32 PM CDT): Obesity is unchanged. Discussed the patient's BMI. The BMI is above average. BMI management plan is completed. BMI Follow-up includes: nutrition counseling, exercise counseling and education provided. BMI 23.0-23.9, adult 08/26/2021 022 Assessment & Plan (08/26/2021 9:36 AM CDT): Weight/BMI is in healthy range. Continue healthy lifestyle to maintain. Annual physical exam 08/26/2021 Assessment & Plan (08/26/2021 12:14 PM CDT): Encouraged healthy lifestyle, good nutrition and exercise. Encouraged Calcium and Vitamin D and weight bearing exercise for bone health. Reviewed immunizations Reviewed age appropirate screenings. Need for immunization against influenza 12/29/2020 06/23/2021 Assessment & Plan (12/29/2020 8:18 PM CDT): Vaccine updated in office today BMI 29.0-29.9,adult 11/15/2020 08/27/19 22 Assessment & Plan (06/23/2021 8:58 PM CDT): Weight/BMI is in healthy range. Continue healthy lifestyle to maintain. Assessment & Plan (11/15/2020 3:52 PM CDT): Weight/BMI is in healthy range. Continue healthy lifestyle to maintain. BMI 29.0-29.9,adult 10/11/2020 11/16/19 Assessment & Plan (10/11/2020 8:03 AM CDT): Weight/BMI is in healthy range. Continue healthy lifestyle to maintain. Obesity (BMI 30-39.9) 10/09/20202024 Assessment & Plan (05/10/2024 9:00 AM AIR TWIST OPERATOR): Discussed the patient's BMI. The BMI is above average. BMI management plan is completed. BMI Follow-up includes: nutrition counseling, exercise counseling and education provided. Assessment & Plan (04/26/2024 11:41 AM AIR TWIST OPERATOR): Discussed the patient's BMI. The BMI is above average. BMI management plan is completed. BMI Follow-up includes: nutrition counseling, exercise counseling and education provided. Assessment & Plan (11/19/2023 10:41 AM CDT): Discussed the patient's BMI. The BMI is above average. BMI management plan is completed. BMI Follow-up includes: nutrition counseling, exercise counseling and education provided. She is down 5 lb which is great Assessment & Plan (10/10/2023 10:16 PM CDT): Discussed the patient's BMI. The BMI is above average. BMI management plan is completed. BMI Follow-up includes: nutrition counseling, exercise counseling and education provided. Discussed weight loss efforts and will increase the Wellbutrin before we discuss any additional options. Advised we have to get her head in the game for her to be able to get back into a regular exercise program which will also affect her food choices. She is in agreement with the plan Assessment & Plan (10/09/2020 4:06 PM CDT): Obesity is unchanged. Discussed the patient's BMI. The BMI is above average. BMI management plan is completed. BMI Follow-up includes: nutrition counseling, exercise counseling and education provided. BMI 30.0-30.9,adult 10/09/2020 10/12/19 21 Assessment & Plan (10/09/2020 4:07 PM CDT): Obesity is unchanged. Discussed the patient's BMI. The BMI is above average. BMI management plan is completed. BMI Follow-up includes: nutrition counseling, exercise counseling and education provided. Spider bite 10/09/2020 11/15/2020 Assessment & Plan (10/11/2020 8:31 AM CDT): Add prn atarax, dc benadryl. Advised caution driving after taking atarax due to potential for drowsiness. Advised f/u in next week if not improving, sooner if streaking or necrosis develops. Assessment & Plan (10/09/2020 9:13 PM CDT): Advised f/u in 48-72h Advised to report to er if worsening Advised benadryl at hs due to itching Dc clindamycin and start on keflex Pelvic floor dysfunction 06/06/2020 Assessment & Plan (11/25/2020 3:14 PM CDT): History in the past and responded well to pelvic floor PT. Order placed Assessment & Plan (06/06/2020 10:50 PM CDT): Pain is related to pelvic floor muscles. Recommend PT Valium per vagina HS NSAIDs prn. Followup 4-6 weeks to reassess. BMI 29.0-29.9,adult 05/28/2020 10/10/19 Assessment & Plan (05/28/2020 3:12 PM CDT): Weight/BMI is in healthy range. Continue healthy lifestyle to maintain. Fever 01/24/2020 08/26/2021 Assessment & Plan (01/24/2020 10:14 AM AIR TWIST OPERATOR): Advised patient that she and family need to quarantine for 2w. She was advised to contact physicians for her family members to discuss testing. She was advised tylenol q6h prn fever. She declines inhaler at this time. She was advised that she will be contacted by resp clinic for testing, and she will be notified of results as available. Cough 01/24/2020 08/26/2021 Assessment & Plan (01/24/2020 10:14 AM AIR TWIST OPERATOR): Advised patient that she and family need to quarantine for 2w. She was advised to contact physicians for her family members to discuss testing. She was advised tylenol q6h prn fever. She declines inhaler at this time. She was advised that she will be contacted by resp clinic for testing, and she will be notified of results as available. Breast cancer screening by mammogram 04/14/2019 06/24/2023 Assessment & Plan (09/07/2022 10:18 PM CDT): Mammogram order provided Assessment & Plan (10/17/2019 10:26 PM CDT): Mammogram order provided Assessment & Plan (04/14/2019 10:13 PM AIR TWIST OPERATOR): Mammogram order provided Sore throat 02/28/2019 02/28/2019 Otitis of right ear 02/28/2019 10/17/19 20 Assessment & Plan (02/28/2019 7:56 PM AIR TWIST OPERATOR): Start antibiotic, antihistamine, Mucinex and Steroid nasal spray. Push fluids. Rest. Supportive care. If sxs worsen or don\'t improve, pt is to followup in the office. Annual physical exam 10/17/2018 022 Assessment & Plan (11/25/2020 3:15 PM CDT): Encouraged healthy lifestyle, good nutrition and exercise. Encouraged Calcium and Vitamin D and weight bearing exercise for bone health. Reviewed immunizations Reviewed age appropirate screenings. Assessment & Plan (10/17/2019 10:25 PM CDT): Encouraged healthy lifestyle, good nutrition and exercise. Encouraged Calcium and Vitamin D and weight bearing exercise for bone health. Reviewed immunizations Reviewed age appropirate screenings. Assessment & Plan (04/14/2019 10:13 PM AIR TWIST OPERATOR): Encouraged healthy lifestyle, good nutrition and exercise. Encouraged Calcium and Vitamin D and weight bearing exercise for bone health. Reviewed immunizations Reviewed age appropirate screenings. Assessment & Plan (10/17/2018 12:52 AM CDT): Encouraged healthy lifestyle, good nutrition and exercise. Encouraged Calcium and Vitamin D and weight bearing exercise for bone health. Reviewed immunizations Reviewed age appropirate screenings. BMI 27.0-27.9,adult 10/11/2018 04/14/19 20 Assessment & Plan (02/22/2019 11:20 AM AIR TWIST OPERATOR): Weight/BMI is in healthy range. Continue healthy lifestyle to maintain. Assessment & Plan (10/11/2018 1:51 PM CDT): BMI Follow-up includes: Discussed diet and exercising counseling. BMI 28.0-28.9,adult 08/26/2018 05/29/19 21 Assessment & Plan (10/17/2019 10:25 PM CDT): Weight/BMI is in healthy range. Continue healthy lifestyle to maintain. Assessment & Plan (04/14/2019 10:13 PM AIR TWIST OPERATOR): Weight/BMI is in healthy range. Continue healthy lifestyle to maintain. Assessment & Plan (08/26/2018 3:58 PM CDT): Weight/BMI is in healthy range. Continue healthy lifestyle to maintain. Type 2 diabetes mellitus without complication 04/08/19 17 11/25/2020 Overview (10/09/2020): controlled Immunizations Immunization Administration Dates Next Due Influenza, Quadrivalent, Spl it, Preservative Free, Intramuscular 12/23/2022,12/25/2021,12/28/2020,12/22,01/03/2019,01/11/2018,01/11/2018 ,12/29/2016,12/29/2016 Influenza, Trivalent, Preser vative Free, Intramuscular 12/28/2023,12/31/2015,01/18/2015 Influenza, Unspecified 01/12/2018 PPD TEST 11/03/2016 Tdap 11/03/2016,11/03/2016 Social History Tobacco Use Types Packs/Day Years Used Date Smoking Tobacco: Never Smokeless Tobacco: Never Tobacco Cessation:Counseling Given: Not Answered Alcohol Use Standard Drinks/Week Comments Never 0 (1 standard drink = 0.6 oz pur e alcohol) AUDIT-C Answer Date Recorded Q1: How often do you have a drink containing alcohol? Never 05/10/2024 Q2: How many drinks containi ng alcohol do you have on a typical day when you are drinking? Patient does not drink Q3: How often do you have si x or more drinks on one occasion? 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 Not on file Not on file Last Filed Vital Signs Vital Sign Reading Time Taken Comments Blood Pressure 124/82 05/10/2024 8:57 AM AIR TWIST OPERATOR Pulse 75 05/10/2024 8:57 AM AIR TWIST OPERATOR Temperature 36.4 C (97.6 F) 05/10/2024 8:57 AM AIR TWIST OPERATOR Respiratory Rate 20 03/22/2023 11:07 AM AIR TWIST OPERATOR Oxygen Saturation 97% 05/10/2024 8:57 AM AIR TWIST OPERATOR Inhaled Oxygen Concentration - - Weight 89.5 kg (197 lb 6.4 oz) 05/10/2024 8:57 A M AIR TWIST OPERATOR Height 157.5 cm (5' 2 ) 05/10/2024 8:57 AM AIR TWIST OPERATOR Body Mass Index 36.1 05/10/2024 8:57 AM AIR TWIST OPERATOR Plan of Treatment Not on file Procedures Procedure Name Priority Date/Time Associated Diagnosis Comments SCREENING MAMMOGRAM 2D BILATERAL Schedule Routine, Read Routine (OP Routine) 02/19/2024 8:51 AM AIR TWIST OPERATOR COLONOSCOPY Routine 02/12/2022 9:24 AM AIR TWIST OPERATOR from Last 3 Months or Most Recently Relevant to Health Maintenance Results * Screening Mammogram 2D Bilateral (02/19/2024 8:51 AM AIR TWIST OPERATOR) Anatomical Region Laterality Modality Breast Bilateral Mammography us Historical Provider IMG MAMMO PROCEDURES Pat l Result * Colonoscopy (02/12/2022 9:24 AM AIR TWIST OPERATOR) Anatomical Region Laterality Modality Other us Historical Provider ENDOSCOPY PROCEDURES Edit ed Result - Final from Last 3 Months or Most Recently Relevant to Health Maintenance Insurance [facility]PPO Address: [facility] [id number] [place] [id number] [facility] N[facility] Care Teams Rotary Cutter Operator Relationship Specialty Start Date End Date Lori Shaw PA [address] [place] [address] PCP - General Internal Medicine 08/23/18 Cooper Marquis MD [address] [place] [address] Consulting Physician Rheumatology 08/25/23
--- OUTSIDE RECORDS SUMMARY | 2024-08-05 10:22 | XMS_ITS | Encounter Summary ---
Author Organization [facility] Facility Care Team Providers Care Economic Adviser Name Role Phone Lori Shwa Primary Care Provider [phone] Cooper Marquis MD Unavailable [phone] Encounter Details Date Type Department Care Team (Latest Contact Info) Description 01/10/2016 Orders Only [facility] ProviderKaz MD [address] [place] [id number] Social History Tobacco Use Types Packs/Day Years Used Date Smoking Tobacco: Never Assessed Comments Unknown Sex and Gender Information Value Date Recorded Sex Assigned at Not on file Legal Sex Female 8:19 AM DIRECTOR PRODUCT Gender Identity Not on file Sexual Orientation Not on file documented as of this encounter Plan of Treatment Not on file documented as of this encounter Procedures Procedure Name Priority Date/Time Associated Diagnosis Comments SCAN - LABS 11/13/2016 12:00 AM CDT documented in this encounter Results * SCAN - LABS (11/13/2016 12:00 AM CDT) Narrative 11/13/2016 12:00 AM CDT Ordered by an unspecified provider. Historical Provider Final Res ult documented in this encounter Visit Diagnoses Not on filedocumented in this encounter Additional Health Concerns Infection Onset Date Last Indicated Resolved Time COVID: Suspected 01/24/2020 01/24/2020 01/26/2020 7:11 AM DIRECTOR PRODUCT COVID19 01/24/2020 01/24/2020 02/07/2020 3:07 AM DIRECTOR PRODUCT COVID: Recovered Comment:Added based on recent COVID infection. 02/07/2020 03/05/2020 06/06/2020 3:05 AM C DT COVID: Suspected 03/22/2023 03/22/2023 03/22/2023 11:34 AM DIRECTOR PRODUCT COVID: Suspected 03/22/2023 03/22/2023 03/22/2023 2:19 PM DIRECTOR PRODUCT COVID19 03/22/2023 03/22/2023 04/01/2023 3:05 AM DIRECTOR PRODUCT COVID: Recovered Comment:Added based on recent COVID infection. 04/01/2023 04/03/2023 06/30/2023 3:06 AM C DT documented as of this encounter Care Teams Economic Adviser Relationship Specialty Start Date End Date Lori Shaw PA [address] [facility] [address] [place] [address] PCP - General Internal Medicine 08/23/18 Cooper Marquis MD [facility] [place] [address] Consulting Physician Rheumatology 08/25/23 documented as of this encounter
--- OUTSIDE RECORDS SUMMARY | 2024-08-05 10:22 | XMS_ITS | Clinical Summary ---
Author Organization [facility] [address] [facility] Address [address] [place] [address] Care Team Providers Care Marble And Granite Polisher Name Role Phone Lori Shaw Primary Care Provider [phone] Cooper Marquis MD Unavailable [phone] Allergies No known active allergies Medications ACCU-CHEK [...] 1 tablet (75 mcg total) by mouth vacuum plastic forming machine operator before breakfast 4 Active simvastatin (ZOCOR) 10 [...] 04/26/2024 Assessment & Plan (05/15/2024 11:01 PM LABEL PRESS OPERATOR): Discussed the patient's BMI. The BMI is above average. BMI management plan is completed. BMI Follow-up includes: nutrition counseling, exercise counseling and education provided. Patient has an obesity-related condition (not limited to: hypertension, obstructive sleep apnea, osteoarthritis, hyperlipidemia, diabetes, etc.). Therefore, morbid obesity may be documented for patients with a BMI between 35.00-39.99. Assessment & Plan (05/15/2024 8:54 PM LABEL PRESS OPERATOR): Discussed the patient's BMI. The BMI is above average. BMI management plan is completed. BMI Follow-up includes: nutrition counseling, exercise counseling and education provided. Patient has an obesity-related condition (not limited to: hypertension, obstructive sleep apnea, osteoarthritis, hyperlipidemia, diabetes, etc.). Therefore, morbid obesity may be documented for patients with a BMI between 35.00-39.99. HUNTER positive 07/16/2023 Assessment & Plan (05/15/2024 8:52 PM LABEL PRESS OPERATOR): Continue to follow with [facility]. Assessment & Plan (03/17/2024 11:31 AM LABEL PRESS OPERATOR): Sidra is a pleasant 48-year-old female [...] recommendations. Assessment & Plan (04/04/2023 12:15 AM LABEL PRESS OPERATOR): Discussed lateral epicondylitis and pathophys. Encouraged [...] 08/28/2022 Assessment & Plan (05/10/2024 9:00 AM LABEL PRESS OPERATOR): Discussed the patient's BMI. The BMI is above average. BMI management plan is completed. BMI Follow-up includes: nutrition counseling, exercise counseling and education provided. Assessment & Plan (04/26/2024 11:40 AM LABEL PRESS OPERATOR): Discussed the patient's BMI. The BMI [...] daily exercise. Patient was concerned because her canine service instructor trainer at the gym is quitting. She was advised to exercise in a way that is enjoyable to her. Assessment & Plan (08/28/2022 10:42 AM CDT): Discussed the patient's BMI. The BMI is above average. BMI management plan is completed. BMI Follow-up includes: nutrition counseling, exercise counseling and education provided. Fatigue 02/02/2022 Assessment & Plan (05/15/2024 8:53 PM LABEL PRESS OPERATOR): Probably multifactorial. Check labs and followup to re-evaluate Assessment & Plan (06/24/2023 5:39 PM CDT): Check labs. Assessment & Plan (02/02/2022 9:48 AM LABEL PRESS OPERATOR): Probably multifactorial. Check labs and followup [...] son leaving as he is moving to [place] for a new job. Had been on [...] visit. Assessment & Plan (02/15/2023 12:07 AM LABEL PRESS OPERATOR): Discussed tapering down medications. Will begin by decreasing the Wellbutrin from 300 down to 150. New prescription sent. Will reassess again in the spring and discuss continued taper if appropriate. Her symptoms increase or she has any problems she is to call immediately. Assessment & Plan (09/07/2022 10:18 PM CDT): Stable with Wellbutrin XL 300 Assessment & Plan (02/02/2022 9:48 AM LABEL PRESS OPERATOR): Stable with Wellbutrin XL 150. Continue [...] anxiety was started on Wellbutrin by her biomedical scientist so will continue with it. Discussed other [...] etiology. She has an appoint with Dr. Babcock, podiatry, and will await her recommendations. Discussed with her utilizing mole skin to create a padding with the donut hole in the middle to try to offload that pressure point until it can be further evaluated. Acne vulgaris 04/14/2019 Assessment & Plan (10/17/2019 10:25 PM CDT): Stable without medication Assessment & Plan (04/14/2019 10:15 PM LABEL PRESS OPERATOR): Cleocin T Gel to the neck/face as needed. Essential hypertension 08/28/2018 Assessment & Plan (05/15/2024 11:01 PM LABEL PRESS OPERATOR): Bp is stable/in acceptable range for [...] medication Assessment & Plan (02/02/2022 9:47 AM LABEL PRESS OPERATOR): Bp is stable/in acceptable range for [...] medication Assessment & Plan (04/14/2019 10:14 PM LABEL PRESS OPERATOR): Stable without medication Assessment & Plan [...] 08/28/2018 Assessment & Plan (05/15/2024 11:01 PM LABEL PRESS OPERATOR): Pre-diabetes/hyperglycemia is a precursor to Dm. Stressed importance of working on diet (decrease your simple sugars and one carbohydrate with each meal) and increase you exercise to achieve weight loss and this will help prevent you from progressing to diabetes. Assessment & Plan (05/15/2024 8:53 PM LABEL PRESS OPERATOR): Pre-diabetes/hyperglycemia is a precursor to Dm. [...] and calorie tracking and exercising with personal banking assistant. Assessment & Plan (09/07/2022 10:17 PM CDT): Pre-diabetes/hyperglycemia is a precursor to Dm. Stressed importance of working on diet (decrease your simple sugars and one carbohydrate with each meal) and increase you exercise to achieve weight loss and this will help prevent you from progressing to diabetes. Assessment & Plan (02/02/2022 9:47 AM LABEL PRESS OPERATOR): Pre-diabetes/hyperglycemia is a precursor to Dm. [...] diabetes. Assessment & Plan (04/14/2019 10:13 PM LABEL PRESS OPERATOR): Pre-diabetes is a precursor to Dm. [...] replaced Assessment & Plan (05/15/2024 11:01 PM LABEL PRESS OPERATOR): Continue levothyroxine 75 mcg. Monitor labs. Assessment & Plan (05/15/2024 8:52 PM LABEL PRESS OPERATOR): Continue levothyroxine 75 mcg. Monitor labs. [...] labs Assessment & Plan (02/02/2022 9:47 AM LABEL PRESS OPERATOR): Continue levothyroxine. Monitor labs. Assessment & [...] levothyroxine Assessment & Plan (04/14/2019 10:13 PM LABEL PRESS OPERATOR): Continue replacement. Labs are stable. Assessment & Plan (10/17/2018 12:52 AM CDT): Labs are stable. Continue Levothyroxine. Refills sent Assessment & Plan (08/28/2018 3:08 PM CDT): Check labs. Continue levothyroxine Hyperlipidemia 04/08/2016 Overview (10/09/2020): on statin Assessment & Plan (05/15/2024 11:01 PM LABEL PRESS OPERATOR): Encouraged patient to follow low fat/low chol diet like the Mediterranean diet. Increase good fats in the diet. Increase exercise. Monitor labs as needed. Continue simvastatin Assessment & Plan (05/15/2024 8:53 PM LABEL PRESS OPERATOR): Encouraged patient to follow low fat/low [...] needed. Assessment & Plan (02/02/2022 9:48 AM LABEL PRESS OPERATOR): Encouraged patient to follow low fat/low [...] 07/16/2023 07/16/19 24 BMI 33.0-33.9,adult 08/28/2022 04/03/19 Assessment & Plan (02/11/2023 2:54 PM LABEL PRESS OPERATOR): Discussed the patient's BMI. The BMI [...] daily exercise. Patient was concerned because her canine service instructor trainer at the gym is quitting. She was advised to exercise in a way that is enjoyable to her. Assessment & Plan (06/24/2023 5:41 PM CDT): Discussed weight loss and mentioned use of GLPs. Encouraged to continue exercise with canine service instructor trainer and use of MyFitnessPal for calorie tracking. Assessment & Plan (04/04/2023 12:15 AM LABEL PRESS OPERATOR): Discussed the patient's BMI. The BMI is above average. BMI management plan is completed. BMI Follow-up includes: nutrition counseling, exercise counseling and education provided. Assessment & Plan (02/11/2023 2:55 PM LABEL PRESS OPERATOR): Discussed the patient's BMI. The BMI is above average. BMI management plan is completed. BMI Follow-up includes: nutrition counseling, exercise counseling and education provided. Assessment & Plan (02/02/2022 9:49 AM LABEL PRESS OPERATOR): Discussed the patient's BMI. The BMI [...] problems or concerns. BMI 33.0-33.9,adult 09/25/2021 11/19/19 24 Assessment & Plan (10/10/2023 10:16 PM CDT): [...] daily exercise. Patient was concerned because her canine service instructor trainer at the gym is quitting. She was advised to exercise in a way that is enjoyable to her. Assessment & Plan (06/24/2023 5:37 PM CDT): Discussed weight loss and mentioned use of GLPs. Encouraged to continue exercise with canine service instructor trainer and use of MyFitnessPal for calorie tracking. Assessment & Plan (04/04/2023 12:15 AM LABEL PRESS OPERATOR): Discussed the patient's BMI. The BMI is above average. BMI management plan is completed. BMI Follow-up includes: nutrition counseling, exercise counseling and education provided. Assessment & Plan (02/02/2022 9:49 AM LABEL PRESS OPERATOR): Discussed the patient's BMI. The BMI [...] lifestyle to maintain. Annual physical exam 08/26/2021 022 Assessment & Plan (08/26/2021 12:14 PM CDT): [...] lifestyle to maintain. BMI 29.0-29.9,adult 10/11/2020 11/16/19 21 Assessment & Plan (10/11/2020 8:03 AM CDT): Weight/BMI is in healthy range. Continue healthy lifestyle to maintain. Obesity (BMI 30-39.9) 10/09/20202024 Assessment & Plan (05/10/2024 9:00 AM LABEL PRESS OPERATOR): Discussed the patient's BMI. The BMI is above average. BMI management plan is completed. BMI Follow-up includes: nutrition counseling, exercise counseling and education provided. Assessment & Plan (04/26/2024 11:41 AM LABEL PRESS OPERATOR): Discussed the patient's BMI. The BMI [...] 08/26/2021 Assessment & Plan (01/24/2020 10:14 AM LABEL PRESS OPERATOR): Advised patient that she and family [...] 08/26/2021 Assessment & Plan (01/24/2020 10:14 AM LABEL PRESS OPERATOR): Advised patient that she and family [...] provided Assessment & Plan (04/14/2019 10:13 PM LABEL PRESS OPERATOR): Mammogram order provided Sore throat 02/28/2019 02/28/2019 Otitis of right ear 02/28/2019 10/17/19 20 Assessment & Plan (02/28/2019 7:56 PM LABEL PRESS OPERATOR): Start antibiotic, antihistamine, Mucinex and Steroid [...] screenings. Assessment & Plan (04/14/2019 10:13 PM LABEL PRESS OPERATOR): Encouraged healthy lifestyle, good nutrition and [...] 20 Assessment & Plan (02/22/2019 11:20 AM LABEL PRESS OPERATOR): Weight/BMI is in healthy range. Continue healthy lifestyle to maintain. Assessment & Plan (10/11/2018 1:51 PM CDT): BMI Follow-up includes: Discussed diet and exercising counseling. BMI 28.0-28.9,adult 08/26/2018 05/29/19 21 Assessment & Plan (10/17/2019 10:25 PM CDT): Weight/BMI is in healthy range. Continue healthy lifestyle to maintain. Assessment & Plan (04/14/2019 10:13 PM LABEL PRESS OPERATOR): Weight/BMI is in healthy range. Continue healthy lifestyle to maintain. Assessment & Plan (08/26/2018 3:58 PM CDT): Weight/BMI is in healthy range. Continue healthy lifestyle to maintain. Type 2 diabetes mellitus without complication 04/08/19 17 11/25/2020 Overview (10/09/2020): controlled Encounters Date Type Department Care Team Description 07/13/2024 Nurse Triage [address] [address] Lori Shaw PA 07/08/2024 Nurse Triage [address] [place] [phone] Lori Shaw PA 07/05/[address] [address] Lori Shaw PA Symptom Based Call 05/10/2024 9:00 AM LABEL PRESS OPERATOR Office Visit [address] [address] Lori Shaw PA Acquired hypothyroidism (Primary Dx); Pre-diabetes; Mixed hyperlipidemia; Essential hypertension; Morbid obesity (HCC); BMI 36.0-36.9,adult from Last 3 Months Immunizations Immunization Administration Dates Next Due Influenza, Quadrivalent, Spl it, Preservative Free, Intramuscular 12/23/2022,12/25/2021,12/28/2020,12/22,01/03/2019,01/11/2018,01/11/2018 ,12/29/2016,12/29/2016 Influenza, Trivalent, Preser vative Free, Intramuscular 12/28/2023,12/31/2015,01/18/2015 Influenza, Unspecified 01/12/2018 PPD TEST 11/03/2016 Tdap 11/03/2016,11/03/2016 Surgical History Surgery Date Site/Laterality Comments TUBAL LIGATION 01/03/2011 WISDOM TOOTH EXTRACTION 08/14/2004 - 09/12/2004 SECTION x3 Medical History Medical History Date Comments Hyperlipidemia Hypothyroidism Type 2 diabetes mellitus (HCC) Family History Medical History Relation Name Comments Diabetes Father Stroke Father Hypertension Mother Thyroid disease Mother Cancer Other Relation Name Status Comments Father Mother Other Social History Tobacco Use Types Packs/Day Years [...] on file Legal Sex Female 8:19 AM LABEL PRESS OPERATOR Gender Identity Not on file Sexual Orientation Not on file 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 Not on file Not on file Not on file Obstetrics History Last Filed Vital Signs Vital Sign Reading Time Taken Comments Blood Pressure 124/82 05/10/2024 8:57 AM LABEL PRESS OPERATOR Pulse 75 05/10/2024 8:57 AM LABEL PRESS OPERATOR Temperature 36.4 C (97.6 F) 05/10/2024 8:57 AM LABEL PRESS OPERATOR Respiratory Rate 20 03/22/2023 11:07 AM LABEL PRESS OPERATOR Oxygen Saturation 97% 05/10/2024 8:57 AM LABEL PRESS OPERATOR Inhaled Oxygen Concentration - - Weight 89.5 kg (197 lb 6.4 oz) 05/10/2024 8:57 A M LABEL PRESS OPERATOR Height 157.5 cm (5' 2 ) 05/10/2024 8:57 AM LABEL PRESS OPERATOR Body Mass Index 36.1 05/10/2024 8:57 AM LABEL PRESS OPERATOR Plan of Treatment Health Maintenance Due Date Last Done Comments Cervical Cancer Screening 1976 Hepatitis C Screening 1976 Hepatitis B Screening 1994 Covid-19 Vaccine ( season) 2023 04/04/2021, 07/13/2020, 06/18/2020 Regular Well Visit/Exam 18-64 10/04/2024 10/05/2023, 08/28/2022, 08/26/2021, Additional history exists Breast Cancer Screening-Mammogram 02/18/2025 02/19/2024, 01/19/2024, 12/04/2022, Additional history exists Depression Screening 05/10/2025 05/10/2024, 04/26/2024, 11/19/2023, Additional history exists DTaP/Tdap/Td Vaccine (3 - Td or Tdap) 11/03/2026 11/03/2016, 11/03/2016 Colon Cancer Screening-Colonoscopy 02/13/2032 02/12/2022 Influenza Vaccine Completed 12/28/2023, , 12/25/2021, Additional history exists Pneumococcal vaccine <65 Aged Out No longer eligible based on patient's age to complete this topic Procedures Procedure Name Priority Date/Time Associated Diagnosis Comments SCREENING MAMMOGRAM 2D BILATERAL Schedule Routine, Read Routine (OP Routine) 02/19/2024 8:51 AM LABEL PRESS OPERATOR COLONOSCOPY Routine 02/12/2022 9:24 AM LABEL PRESS OPERATOR from Last 3 Months or Most Recently Relevant to Health Maintenance Results * Screening Mammogram 2D Bilateral (02/19/2024 8:51 AM LABEL PRESS OPERATOR) Anatomical Region Laterality Modality Breast Bilateral Mammography us Historical Provider MD MILLER MAMMO PROCEDURES Pat l Result * Colonoscopy (02/12/2022 9:24 AM LABEL PRESS OPERATOR) Anatomical Region Laterality Modality Other us Historical Provider MD ENDOSCOPY PROCEDURES Edit ed Result - Final from Last 3 Months or Most Recently Relevant to Health Maintenance Insurance [facility]AVYA NAP Care Teams Marble And Granite Polisher Relationship Specialty Start Date End Date Lori Shaw PA [address] [facility] [address] [place] [address] PCP - General Internal Medicine 08/23/18 Cooper Marquis MD [address] [place] [address] Consulting Physician Rheumatology 08/25/23
--- OUTSIDE RECORDS SUMMARY | 2024-08-05 10:22 | XMS_ITS | Encounter Summary ---
Author Organization [facility] Address [address] [place] [address] Care Team Providers Care Golf Cart Assembler Name Role Phone Lori Shaw Primary Care Provider [phone] Cooper Marquis MD Unavailable [phone] Encounter Details Date Type Department Care Team (Late st Contact Info) Description 01/19/2024 Orders Only [facility] [address] [place] [address] Lori Shaw PA [address] [address] Social History Tobacco Use Types Packs/Day Years Used Date Smoking Tobacco: Never Smokeless Tobacco: Never Alcohol Use Standard Drinks/Week Comments Never 0 (1 standard drink = 0.6 oz pur e alcohol) AUDIT-C Answer Date Recorded Frequency of Alcohol Consumption Not on file 11/19/2023 Q2: How many drinks containi ng alcohol do you have on a typical day when you are drinking? 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 Not on file Not on file documented as of this encounter Plan of Treatment Not on file documented as of this encounter Procedures Procedure Name Priority Date/Time Associated Diagnosis Comments SCAN - RADIOLOGY/IMAGING 01/19/2024 documented in this encounter Results * SCAN - RADIOLOGY/IMAGING (01/19/2024) Anatomical Region Laterality Modality Other us Lori STARK Edited Res ult - Final documented in this encounter Visit Diagnoses Not on filedocumented in this encounter Care Teams Golf Cart Assembler Relationship Specialty Start Date End Date Lori Shaw PA [address] [place] [address] PCP - General Internal Medicine 08/23/18 Cooper Marquis MD [address] [place] [address] Consulting Physician Rheumatology 08/25/23 documented as of this encounter
--- OUTSIDE RECORDS SUMMARY | 2024-08-05 10:22 | XMS_ITS | Encounter Summary ---
Author Organization [facility] Care Team Providers Care Wire Rope Fabrication Supervisor Name Role Phone Lori Shaw Primary Care Provider [phone] Cooper Marquis MD Unavailable [phone] Encounter Details Date Type Department Care Team (Latest Contact Info) Description 11/05/2016 Orders Only [facility] ProviderKaz MD [address] [place] [address] Social History Tobacco Use Types Packs/Day Years Used Date Smoking Tobacco: Never Assessed Comments Unknown Sex and Gender Information Value Date Recorded Sex Assigned at Not on file Legal Sex Female 8:19 AM TITLE CURATOR Gender Identity Not on file Sexual Orientation Not on file documented as of this encounter Plan of Treatment Not on file documented as of this encounter Procedures Procedure Name Priority Date/Time Associated Diagnosis Comments SCAN - LABS 11/05/2016 12:00 AM CDT documented in this encounter Results * SCAN - LABS (11/05/2016 12:00 AM CDT) Narrative 11/05/2016 12:00 AM CDT Ordered by an unspecified provider. Historical Provider Final Res ult documented in this encounter Visit Diagnoses Not on filedocumented in this encounter Additional Health Concerns Infection Onset Date Last Indicated Resolved Time COVID: Suspected 01/24/2020 01/24/2020 01/26/2020 7:11 AM TITLE CURATOR COVID19 01/24/2020 01/24/2020 02/07/2020 3:07 AM TITLE CURATOR COVID: Recovered Comment:Added based on recent COVID infection. 02/07/2020 03/05/2020 06/06/2020 3:05 AM C DT COVID: Suspected 03/22/2023 03/22/2023 03/22/2023 11:34 AM TITLE CURATOR COVID: Suspected 03/22/2023 03/22/2023 03/22/2023 2:19 PM TITLE CURATOR COVID19 03/22/2023 03/22/2023 04/01/2023 3:05 AM TITLE CURATOR COVID: Recovered Comment:Added based on recent COVID infection. 04/01/2023 04/03/2023 06/30/2023 3:06 AM C DT documented as of this encounter Care Teams Wire Rope Fabrication Supervisor Relationship Specialty Start Date End Date Lori Shaw PA [address] [facility] [address] [place] [address] PCP - General Internal Medicine 08/23/18 Cooper Marquis MD [facility] [place] [address] Consulting Physician Rheumatology 08/25/23 documented as of this encounter
--- OUTSIDE RECORDS SUMMARY | 2024-08-05 10:22 | XMS_ITS | Encounter Summary ---
Author Organization [facility] Healthcare Address [address] [place] [address] Care Team Providers Care Child Care Center Assistant Director Name Role Phone Lori Shaw Primary Care Provider [phone] Cooper Marquis MD Unavailable [phone] Reason for Visit * Reason Onset Date Comments Vaginal Bleeding 07/13/2024 Encounter Details Date Type Department Care Team (Late st Contact Info) Description 07/13/2024 Nurse Triage [facility] Family Medicine [address] [place] [address] Lori Shaw PA 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 She voiced understanding. * Telephone Encounter - Lori Shaw PA - 07/13/2024 4:32 PM CDT Let patient know that the Cymbalta would not affect her bleeding. Keep track of her cycles/bleeding and bring them to her Sujey appointment so we can review. If she starts to saturate a pad an hour --- I need to see her in the office * Telephone Encounter - Rosette Soriano RN - 07/13/2024 3:09 PM CDT Pt calls into rehabilitation specialist after having vaginal bleeding starting two days ago. Pt reports having her regular period 16 days ago. Pt denies abdominal pain, dizziness, skin pallor, blood clots, chance ofpregnancy or excessive bleeding. Pt using 4-5 pads or tampons in a 24 period. Pt reports this feelslike her usual periods. Pt started cymbalta and asking pcp if this could be cause. Pt wanting pcp input. Pt advised to call back with worsening symptoms like abdominal pain, increase in bleeding or further concners. Pt agrees. Reason for Disposition Age > 39 years with irregular or excessive bleeding Protocols used: Vaginal Bleeding - [id number] * Telephone Encounter - Rosette Soriano RN - 07/13/2024 3:05 PM CDT Regarding: Having second menstrual cycle in 16 days ----- Message from Bhavya Darling sent at 07/13/2024 3:05 PM CDT ----- Symptom Based Call Chief Complaint(s): Having second menstrual cycle in 16 days Duration: Since Thursday What type of symptom(s) is the patient experiencing? Non-Emergent. Is this a new or reoccurring symptom(s)? new What have you tried to help your symptom(s)? N/A Why was appointment not scheduled? Requesting advice from clinical sales floor team member. Additional Comments: Patient states she just started on DULoxetine DR (CYMBALTA) 30 mg capsule lastWe. Thursday she started her menstrual cycle again, 16 days after her last one. She has no other symptoms and cycle seems normal like it always is, she is curious if the new medication could cause this Does message need to be routed? Yes-Action Needed documented in this encounter Plan of Treatment Not on file documented as of this encounter Visit Diagnoses Not on filedocumented in this encounter Care Teams Child Care Center Assistant Director Relationship Specialty Start Date End Date Lori Shaw PA [address] [facility] [address] [place] [address] PCP - General Internal Medicine 08/23/18 Cooper Marquis MD [facility] [place] [address] Consulting Physician Rheumatology 08/25/23 documented as of this encounter
--- OUTSIDE RECORDS SUMMARY | 2024-08-05 10:22 | XMS_ITS | Encounter Summary ---
Author Organization [facility] Facility Care Team Providers Care Senior Grant Writer Name Role Phone Lori Shaw Primary Care Provider [phone] Cooper Marquis MD Unavailable [phone] Encounter Details Date Type Department Care Team (Latest Contact Info) Description 02/24/2018 Orders Only [facility] ProviderKaz MD [address] [place] [address] Social History Tobacco Use Types Packs/Day Years Used Date Smoking Tobacco: Never Assessed Comments Unknown Sex and Gender Information Value Date Recorded Sex Assigned at Not on file Legal Sex Female 8:19 AM HOME HEALTH LVN Gender Identity Not on file Sexual Orientation Not on file documented as of this encounter Plan of Treatment Not on file documented as of this encounter Procedures Procedure Name Priority Date/Time Associated Diagnosis Comments PROCEDURE - RESULT 02/23/2018 12 :00 AM HOME HEALTH LVN documented in this encounter Results * PROCEDURE - RESULT (02/23/2018 12:00 AM HOME HEALTH LVN) Narrative 02/23/2018 12:00 AM HOME HEALTH LVN Ordered by an unspecified provider. Historical Provider Final Res ult documented in this encounter Visit Diagnoses Not on filedocumented in this encounter Additional Health Concerns Infection Onset Date Last Indicated Resolved Time COVID: Suspected 01/24/2020 01/24/2020 01/26/2020 7:11 AM HOME HEALTH LVN COVID19 01/24/2020 01/24/2020 02/07/2020 3:07 AM HOME HEALTH LVN COVID: Recovered Comment:Added based on recent COVID infection. 02/07/2020 03/05/2020 06/06/2020 3:05 AM C DT COVID: Suspected 03/22/2023 03/22/2023 03/22/2023 11:34 AM HOME HEALTH LVN COVID: Suspected 03/22/2023 03/22/2023 03/22/2023 2:19 PM HOME HEALTH LVN COVID19 03/22/2023 03/22/2023 04/01/2023 3:05 AM HOME HEALTH LVN COVID: Recovered Comment:Added based on recent COVID infection. 04/01/2023 04/03/2023 06/30/2023 3:06 AM C DT documented as of this encounter Care Teams Senior Grant Writer Relationship Specialty Start Date End Date Lori Shaw PA [address] [facility] [address] [place] [address] PCP - General Internal Medicine 08/23/18 Cooepr Marquis MD [facility] [place] [address] Consulting Physician Rheumatology 08/25/23 documented as of this encounter
[2024-08-05 11:03] LABS: Anion Gap 6 mmol/L (4-12); Blood Urea Nitrogen 16 mg/dL (7-17); Calcium 8.5 mg/dL (8.4-10.2); Carbon Dioxide 29 mmol/L (22-30); Chloride 101 mmol/L (98-107); Estimated Glomerular Filt Rate > 60; Glucose 85 mg/dL (65-110); Potassium 4.4 mmol/L (3.4-5.0); Sodium 136 mmol/L (137-145)
== END 2024-08-05 10:18 | disposition home or self-care (01) ==
LOC: ANHSURGERY 10:20
PROVIDERS: Anesthesiology; PCP Physician Assistant; Visit Provider Obstetrics & Gynecology Gynecology
DX: Z01.812 Encounter for preprocedural laboratory examination (principal); N93.9 Abnormal uterine and vaginal bleeding, unspecified
CPT/HCPCS: 36415; 80048

== ENCOUNTER 2024-08-15 00:07 | Day surgery (SDC) | payer OTHER, SELFPAY ==
--- NOTE | 2024-08-04 09:26 | SUR.PREOP ---
Report to the Outpatient Waiting Room, entrance under the green pavilion located off [facility], at time 0745 on date 08/15/24. Planned Procedure Time: 0945.? Time changes happen often and if your time is changed the preop area will call you the afternoon before. - You and your visitor will be asked to self-screen and do not enter if you have any COVID symptoms. Please call surgeon if you need to reschedule. - A mask is optional within the hospital at this time. Patients may have clear liquids (water, carbonated beverages, clear teas, apple juice) until 3 hours prior to surgery with a maximum of 20 ounces. - NO CLEAR LIQUIDS AFTER 0645 - No food from midnight until time of surgery and no smoking, or chewing tobacco (or any form of nicotine). No chewing gum, candy or mints. - Infants may have breast milk until 4 hours before surgery, formula 6 hours prior to surgery. - Children will be allowed to drink immediately following surgery.? If applicable, please bring a bottle or sippy cup to assist with drinking. Juice, water, soda, and popsicles are readily available.? For infants on formula, please bring formula the day of surgery.? Pacifiers are allowed. Take only the following medications with a SIP of water on the morning of surgery: LEVOTHYROXINE, BUPROPION, DULOXETINE DO NOT STOP ANY OF YOUR OTHER PRESCRIPTION MEDICATIONS PRIOR TO SURGERY EXCEPT THE FOLLOWING Hold all vitamins and supplements for 3 days per anesthesiologist. Medications to discontinue per physician VITAMINS & SUPPLEMENTS Date to take last dose 08/12/24 Please no make-up, nail amharic, hairspray, perfume, deodorant, or body powder the day of surgery.? No jewelry (including any body piercings) or valuables the day of surgery, leave them at home.? Please take a shower or bath the night before, or the morning of, surgery with an antibacterial soap.? Wear comfortable, loose fitting clothing.? Children are encouraged to wear pajamas. - Jewelry must be removed prior to entering the operating room.? Rings and piercings that are not removed may be cut off. - The hospital will not accept responsibility for valuables.? - Please leave all valuables, including medications, at home the day of surgery. If you are going home after surgery, a licensed funeral driver must drive you home.? - NO public transportation without another adult if you receive anesthesia. - We recommend that an adult stay with you for 24 hours following discharge. - We also recommend that you do not drive, make important decision, drink alcoholic beverages, or take any drugs that were not prescribed by your health care provider for at least 24 hours after your discharge time. For Pediatric surgeries, we recommend two adults accompany the child home. Follow any additional instructions given to you from your surgeon. Telephone instructions given to NATHAN TYSON and asked if any additional questions and then verbalized understanding. Patient advised to call surgeon office or pre surgery nurse liaison [phone] if any additional questions.
[2024-08-04 09:41] VITALS: BMI 35.7
--- OUTSIDE RECORDS SUMMARY | 2024-08-15 00:10 | XMS_ITS | Clinical Summary ---
Author Organization [facility] [place] [facility] [facility] Address [address] [place] [address] Care Team Providers Care Traffic Routing Engineer Name Role Phone Lori Shaw Primary Care Provider [phone] Cooper Marquis MD Unavailable [phone] Allergies No known active allergies Medications ACCU-CHEK [...] 1 tablet (75 mcg total) by mouth director of early childhood education before breakfast 4 Active simvastatin (ZOCOR) 10 [...] 04/26/2024 Assessment & Plan (05/15/2024 11:01 PM BRIDGE OPERATOR SLIP): Discussed the patient's BMI. The BMI is above average. BMI management plan is completed. BMI Follow-up includes: nutrition counseling, exercise counseling and education provided. Patient has an obesity-related condition (not limited to: hypertension, obstructive sleep apnea, osteoarthritis, hyperlipidemia, diabetes, etc.). Therefore, morbid obesity may be documented for patients with a BMI between 35.00-39.99. Assessment & Plan (05/15/2024 8:54 PM BRIDGE OPERATOR SLIP): Discussed the patient's BMI. The BMI is above average. BMI management plan is completed. BMI Follow-up includes: nutrition counseling, exercise counseling and education provided. Patient has an obesity-related condition (not limited to: hypertension, obstructive sleep apnea, osteoarthritis, hyperlipidemia, diabetes, etc.). Therefore, morbid obesity may be documented for patients with a BMI between 35.00-39.99. HUNTER positive 07/16/2023 Assessment & Plan (05/15/2024 8:52 PM BRIDGE OPERATOR SLIP): Continue to follow with [facility]. Assessment & Plan (03/17/2024 11:31 AM BRIDGE OPERATOR SLIP): Sidra is a pleasant 48-year-old female that [...] recommendations. Assessment & Plan (04/04/2023 12:15 AM BRIDGE OPERATOR SLIP): Discussed lateral epicondylitis and pathophys. Encouraged to [...] 08/28/2022 Assessment & Plan (05/10/2024 9:00 AM BRIDGE OPERATOR SLIP): Discussed the patient's BMI. The BMI is above average. BMI management plan is completed. BMI Follow-up includes: nutrition counseling, exercise counseling and education provided. Assessment & Plan (04/26/2024 11:40 AM BRIDGE OPERATOR SLIP): Discussed the patient's BMI. The BMI is [...] daily exercise. Patient was concerned because her customer service trainer at the gym is quitting. She was advised to exercise in a way that is enjoyable to her. Assessment & Plan (08/28/2022 10:42 AM CDT): Discussed the patient's BMI. The BMI is above average. BMI management plan is completed. BMI Follow-up includes: nutrition counseling, exercise counseling and education provided. Fatigue 02/02/2022 Assessment & Plan (05/15/2024 8:53 PM BRIDGE OPERATOR SLIP): Probably multifactorial. Check labs and followup to re-evaluate Assessment & Plan (06/24/2023 5:39 PM CDT): Check labs. Assessment & Plan (02/02/2022 9:48 AM BRIDGE OPERATOR SLIP): Probably multifactorial. Check labs and followup to [...] son leaving as he is moving to [place] for a new job. Had been on [...] visit. Assessment & Plan (02/15/2023 12:07 AM BRIDGE OPERATOR SLIP): Discussed tapering down medications. Will begin by decreasing the Wellbutrin from 300 down to 150. New prescription sent. Will reassess again in the spring and discuss continued taper if appropriate. Her symptoms increase or she has any problems she is to call immediately. Assessment & Plan (09/07/2022 10:18 PM CDT): Stable with Wellbutrin XL 300 Assessment & Plan (02/02/2022 9:48 AM BRIDGE OPERATOR SLIP): Stable with Wellbutrin XL 150. Continue to [...] anxiety was started on Wellbutrin by her health informatics specialist so will continue with it. Discussed other [...] medication Assessment & Plan (04/14/2019 10:15 PM BRIDGE OPERATOR SLIP): Cleocin T Gel to the neck/face as needed. Essential hypertension 08/28/2018 Assessment & Plan (05/15/2024 11:01 PM BRIDGE OPERATOR SLIP): Bp is stable/in acceptable range for any [...] medication Assessment & Plan (02/02/2022 9:47 AM BRIDGE OPERATOR SLIP): Bp is stable/in acceptable range for any [...] medication Assessment & Plan (04/14/2019 10:14 PM BRIDGE OPERATOR SLIP): Stable without medication Assessment & Plan (10/17/2018 [...] 08/28/2018 Assessment & Plan (05/15/2024 11:01 PM BRIDGE OPERATOR SLIP): Pre-diabetes/hyperglycemia is a precursor to Dm. Stressed importance of working on diet (decrease your simple sugars and one carbohydrate with each meal) and increase you exercise to achieve weight loss and this will help prevent you from progressing to diabetes. Assessment & Plan (05/15/2024 8:53 PM BRIDGE OPERATOR SLIP): Pre-diabetes/hyperglycemia is a precursor to Dm. Stressed [...] and calorie tracking and exercising with personal security specialist. Assessment & Plan (09/07/2022 10:17 PM CDT): Pre-diabetes/hyperglycemia is a precursor to Dm. Stressed importance of working on diet (decrease your simple sugars and one carbohydrate with each meal) and increase you exercise to achieve weight loss and this will help prevent you from progressing to diabetes. Assessment & Plan (02/02/2022 9:47 AM BRIDGE OPERATOR SLIP): Pre-diabetes/hyperglycemia is a precursor to Dm. Stressed [...] diabetes. Assessment & Plan (04/14/2019 10:13 PM BRIDGE OPERATOR SLIP): Pre-diabetes is a precursor to Dm. Stressed [...] replaced Assessment & Plan (05/15/2024 11:01 PM BRIDGE OPERATOR SLIP): Continue levothyroxine 75 mcg. Monitor labs. Assessment & Plan (05/15/2024 8:52 PM BRIDGE OPERATOR SLIP): Continue levothyroxine 75 mcg. Monitor labs. Assessment & Plan (11/19/2023 10:40 AM CDT): Continue levothyroxine 75 mcg. Monitor labs. Assessment & Plan (10/10/2023 10:15 PM CDT): Continue levothyroxine. Monitor labs. Assessment & Plan (06/24/2023 5:35 PM CDT): Check TSH levels and continue Levothyroxine. Assessment & Plan (09/07/2022 10:19 PM CDT): Continue with levothyroxine 75 mcg. Monitor labs Assessment & Plan (02/02/2022 9:47 AM BRIDGE OPERATOR SLIP): Continue levothyroxine. Monitor labs. Assessment & Plan (10/05/2021 3:33 PM CDT): Continue levothyroxine. Monitor labs. Assessment & Plan (08/26/2021 12:13 PM CDT): Continue levothyroxine. Monitor labs. Assessment & Plan (06/23/2021 8:57 PM CDT): Continue levothyroxine. Monitor labs. Assessment & Plan (11/25/2020 3:10 PM CDT): Continue levothyroxine. Monitor labs. Assessment & Plan (10/17/2019 10:25 PM CDT): Continue levothyroxine Assessment & Plan (04/14/2019 10:13 PM BRIDGE OPERATOR SLIP): Continue replacement. Labs are stable. Assessment & Plan (10/17/2018 12:52 AM CDT): Labs are stable. Continue Levothyroxine. Refills sent Assessment & Plan (08/28/2018 3:08 PM CDT): Check labs. Continue levothyroxine Hyperlipidemia 04/08/2016 Overview (10/09/2020): on statin Assessment & Plan (05/15/2024 11:01 PM BRIDGE OPERATOR SLIP): Encouraged patient to follow low fat/low chol diet like the Mediterranean diet. Increase good fats in the diet. Increase exercise. Monitor labs as needed. Continue simvastatin Assessment & Plan (05/15/2024 8:53 PM BRIDGE OPERATOR SLIP): Encouraged patient to follow low fat/low chol [...] needed. Assessment & Plan (02/02/2022 9:48 AM BRIDGE OPERATOR SLIP): Encouraged patient to follow low fat/low chol [...] 04/03/19 Assessment & Plan (02/11/2023 2:54 PM BRIDGE OPERATOR SLIP): Discussed the patient's BMI. The BMI is [...] daily exercise. Patient was concerned because her customer service trainer at the gym is quitting. She was advised to exercise in a way that is enjoyable to her. Assessment & Plan (06/24/2023 5:41 PM CDT): Discussed weight loss and mentioned use of GLPs. Encouraged to continue exercise with customer service trainer and use of [employer]itness[employer] for calorie tracking. Assessment & Plan (04/04/2023 12:15 AM BRIDGE OPERATOR SLIP): Discussed the patient's BMI. The BMI is above average. BMI management plan is completed. BMI Follow-up includes: nutrition counseling, exercise counseling and education provided. Assessment & Plan (02/11/2023 2:55 PM BRIDGE OPERATOR SLIP): Discussed the patient's BMI. The BMI is above average. BMI management plan is completed. BMI Follow-up includes: nutrition counseling, exercise counseling and education provided. Assessment & Plan (02/02/2022 9:49 AM BRIDGE OPERATOR SLIP): Discussed the patient's BMI. The BMI is [...] daily exercise. Patient was concerned because her customer service trainer at the gym is quitting. She was advised to exercise in a way that is enjoyable to her. Assessment & Plan (06/24/2023 5:37 PM CDT): Discussed weight loss and mentioned use of GLPs. Encouraged to continue exercise with customer service trainer and use of [employer]itness[employer] for calorie tracking. Assessment & Plan (04/04/2023 12:15 AM BRIDGE OPERATOR SLIP): Discussed the patient's BMI. The BMI is above average. BMI management plan is completed. BMI Follow-up includes: nutrition counseling, exercise counseling and education provided. Assessment & Plan (02/02/2022 9:49 AM BRIDGE OPERATOR SLIP): Discussed the patient's BMI. The BMI is [...] 10/09/20202024 Assessment & Plan (05/10/2024 9:00 AM BRIDGE OPERATOR SLIP): Discussed the patient's BMI. The BMI is above average. BMI management plan is completed. BMI Follow-up includes: nutrition counseling, exercise counseling and education provided. Assessment & Plan (04/26/2024 11:41 AM BRIDGE OPERATOR SLIP): Discussed the patient's BMI. The BMI is [...] 08/26/2021 Assessment & Plan (01/24/2020 10:14 AM BRIDGE OPERATOR SLIP): Advised patient that she and family need [...] 08/26/2021 Assessment & Plan (01/24/2020 10:14 AM BRIDGE OPERATOR SLIP): Advised patient that she and family need [...] provided Assessment & Plan (04/14/2019 10:13 PM BRIDGE OPERATOR SLIP): Mammogram order provided Sore throat 02/28/2019 02/28/2019 Otitis of right ear 02/28/2019 10/17/19 20 Assessment & Plan (02/28/2019 7:56 PM BRIDGE OPERATOR SLIP): Start antibiotic, antihistamine, Mucinex and Steroid nasal [...] screenings. Assessment & Plan (04/14/2019 10:13 PM BRIDGE OPERATOR SLIP): Encouraged healthy lifestyle, good nutrition and exercise. [...] 20 Assessment & Plan (02/22/2019 11:20 AM BRIDGE OPERATOR SLIP): Weight/BMI is in healthy range. Continue healthy lifestyle to maintain. Assessment & Plan (10/11/2018 1:51 PM CDT): BMI Follow-up includes: Discussed diet and exercising counseling. BMI 28.0-28.9,adult 08/26/2018 05/29/19 21 Assessment & Plan (10/17/2019 10:25 PM CDT): Weight/BMI is in healthy range. Continue healthy lifestyle to maintain. Assessment & Plan (04/14/2019 10:13 PM BRIDGE OPERATOR SLIP): Weight/BMI is in healthy range. Continue healthy lifestyle to maintain. Assessment & Plan (08/26/2018 3:58 PM CDT): Weight/BMI is in healthy range. Continue healthy lifestyle to maintain. 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 Not on file Not on file Obstetrics History Last Filed Vital Signs Vital Sign Reading Time Taken Comments Blood Pressure 124/82 05/10/2024 8:57 AM BRIDGE OPERATOR SLIP Pulse 75 05/10/2024 8:57 AM BRIDGE OPERATOR SLIP Temperature 36.4 C (97.6 F) 05/10/2024 8:57 AM BRIDGE OPERATOR SLIP Respiratory Rate 20 03/22/2023 11:07 AM BRIDGE OPERATOR SLIP Oxygen Saturation 97% 05/10/2024 8:57 AM BRIDGE OPERATOR SLIP Inhaled Oxygen Concentration - - Weight 89.5 kg (197 lb 6.4 oz) 05/10/2024 8:57 A M BRIDGE OPERATOR SLIP Height 157.5 cm (5' 2) 05/10/2024 8:57 AM BRIDGE OPERATOR SLIP Body Mass Index 36.1 05/10/2024 8:57 AM BRIDGE OPERATOR SLIP Plan of Treatment Health Maintenance Due Date [...] Read Routine (OP Routine) 02/19/2024 8:51 AM BRIDGE OPERATOR SLIP COLONOSCOPY Routine 02/12/2022 9:24 AM BRIDGE OPERATOR SLIP from Last 3 Months or Most Recently Relevant to Health Maintenance Results * Screening Mammogram 2D Bilateral (02/19/2024 8:51 AM BRIDGE OPERATOR SLIP) Anatomical Region Laterality Modality Breast Bilateral Mammography us Historical Provider IMG MAMMO PROCEDURES Pat l Result * Colonoscopy (02/12/2022 9:24 AM BRIDGE OPERATOR SLIP) Anatomical Region Laterality Modality Other us Historical Provider ENDOSCOPY PROCEDURES Edit ed Result - Final from Last 3 Months or Most Recently Relevant to Health Maintenance [facility] Care Teams Traffic Routing Engineer Relationship Specialty Start Date End Date Lori Shaw PA [address] [facility] [address] [place] [address] PCP - General Internal Medicine 08/23/18 Cooper Marquis MD [address] [place] [address] Consulting Physician Rheumatology 08/25/23
--- OUTSIDE RECORDS SUMMARY | 2024-08-15 00:10 | XMS_ITS | Encounter Summary ---
Author Organization [facility] Healthcare Address [address] [place] [address] Care Team Providers Care Registered Public Health Nurse Name Role Phone Lori Shaw Primary Care Provider [phone] Cooper Marquis MD Unavailable [phone] Encounter Details Date Type Department Care Team (Late st Contact Info) Description 01/19/2024 Orders Only [facility] [place] Health Information Management [address] [place] [address] Lori Shaw PA [address] [address] Social History Tobacco Use Types [...] on file Legal Sex Female 8:19 AM APPRENTICE PLUMBER Gender Identity Not on file Sexual Orientation Not on file 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
--- OUTSIDE RECORDS SUMMARY | 2024-08-15 00:10 | XMS_ITS | Encounter Summary ---
Author Organization [facility] Facility Care Team Providers Care Engine House Helper Name Role Phone Lori Shaw Primary Care Provider [phone] Cooper Marquis MD Unavailable [phone] Encounter Details Date Type Department Care Team (Latest Contact Info) Description 01/10/2016 Orders Only [facility] CLINCON[facility] ProviderKaz MD [address] [place] [address] Social History Tobacco Use Types Packs/Day Years Used Date Smoking Tobacco: Never Assessed Comments Unknown Sex and Gender Information Value Date Recorded Sex Assigned at Not on file Legal Sex Female 8:19 AM DIRECTOR OF INSTRUCTIONAL TECHNOLOGY Gender Identity Not on file Sexual Orientation [...] Suspected 01/24/2020 01/24/2020 01/26/2020 7:11 AM DIRECTOR OF INSTRUCTIONAL TECHNOLOGY COVID19 01/24/2020 01/24/2020 02/07/2020 3:07 AM DIRECTOR OF INSTRUCTIONAL TECHNOLOGY COVID: Recovered Comment:Added based on recent COVID infection. 02/07/2020 03/05/2020 06/06/2020 3:05 AM C DT COVID: Suspected 03/22/2023 03/22/2023 03/22/2023 11:34 AM DIRECTOR OF INSTRUCTIONAL TECHNOLOGY COVID: Suspected 03/22/2023 03/22/2023 03/22/2023 2:19 PM DIRECTOR OF INSTRUCTIONAL TECHNOLOGY COVID19 03/22/2023 03/22/2023 04/01/2023 3:05 AM DIRECTOR OF INSTRUCTIONAL TECHNOLOGY COVID: Recovered Comment:Added based on recent COVID infection. 04/01/2023 04/03/2023 06/30/2023 3:06 AM C DT documented as of this encounter Care Teams Engine House Helper Relationship Specialty Start Date End Date Lori Shaw PA [address] [facility] [address] [place] [address] PCP - General Internal Medicine 08/23/18 Cooper Marquis MD [facility] [place] [address] Consulting Physician Rheumatology 08/25/23 documented as of this encounter
--- OUTSIDE RECORDS SUMMARY | 2024-08-15 00:11 | XMS_ITS | Referral Summary ---
Author Organization [facility] [address] [facility] Address [address] [place] [id number] Care Team Providers Care Contract Modeler Name Role Phone Lori Shaw Primary Care Provider [phone]- [phone] Cooper Marquis MD Unavailable Encounters Date Type Department Care Team Description 07/13/2024 Nurse Triage [facility] Family Medicine [address] [place] [address] [place] [phone] Lori Shaw PA 07/08/2024 Nurse Triage [address] [place] [phone] Lori Shaw PA 07/05/[address] [place] [phone] Lori Shaw PA Symptom Based Call from Last 3 Months Allergies No known active allergies Medications ACCU-CHEK SOFTCLIX LANCETS lancets CHECK BLOOD GLUCOSE ONCE A DAY 3 201 9 Active cholecalciferol (VITAMIN D-3) 2000 unit [...] 1 tablet (75 mcg total) by mouth security advisor before breakfast 4 Active simvastatin (ZOCOR) 10 [...] 04/26/2024 Assessment & Plan (05/15/2024 11:01 PM WELL HEAD PUMPER): Discussed the patient's BMI. The BMI is above average. BMI management plan is completed. BMI Follow-up includes: nutrition counseling, exercise counseling and education provided. Patient has an obesity-related condition (not limited to: hypertension, obstructive sleep apnea, osteoarthritis, hyperlipidemia, diabetes, etc.). Therefore, morbid obesity may be documented for patients with a BMI between 35.00-39.99. Assessment & Plan (05/15/2024 8:54 PM WELL HEAD PUMPER): Discussed the patient's BMI. The BMI is above average. BMI management plan is completed. BMI Follow-up includes: nutrition counseling, exercise counseling and education provided. Patient has an obesity-related condition (not limited to: hypertension, obstructive sleep apnea, osteoarthritis, hyperlipidemia, diabetes, etc.). Therefore, morbid obesity may be documented for patients with a BMI between 35.00-39.99. HUNTER positive 07/16/2023 Assessment & Plan (05/15/2024 8:52 PM WELL HEAD PUMPER): Continue to follow with [facility] Rheumatology. Assessment & Plan (03/17/2024 11:31 AM WELL HEAD PUMPER): Sidra is a pleasant 48-year-old female that [...] recommendations. Assessment & Plan (04/04/2023 12:15 AM WELL HEAD PUMPER): Discussed lateral epicondylitis and pathophys. Encouraged to [...] 08/28/2022 Assessment & Plan (05/10/2024 9:00 AM WELL HEAD PUMPER): Discussed the patient's BMI. The BMI is above average. BMI management plan is completed. BMI Follow-up includes: nutrition counseling, exercise counseling and education provided. Assessment & Plan (04/26/2024 11:40 AM WELL HEAD PUMPER): Discussed the patient's BMI. The BMI is [...] daily exercise. Patient was concerned because her clinical provider trainer at the gym is quitting. She was advised to exercise in a way that is enjoyable to her. Assessment & Plan (08/28/2022 10:42 AM CDT): Discussed the patient's BMI. The BMI is above average. BMI management plan is completed. BMI Follow-up includes: nutrition counseling, exercise counseling and education provided. Fatigue 02/02/2022 Assessment & Plan (05/15/2024 8:53 PM WELL HEAD PUMPER): Probably multifactorial. Check labs and followup to re-evaluate Assessment & Plan (06/24/2023 5:39 PM CDT): Check labs. Assessment & Plan (02/02/2022 9:48 AM WELL HEAD PUMPER): Probably multifactorial. Check labs and followup to [...] son leaving as he is moving to [place] for a new job. Had been on [...] visit. Assessment & Plan (02/15/2023 12:07 AM WELL HEAD PUMPER): Discussed tapering down medications. Will begin by decreasing the Wellbutrin from 300 down to 150. New prescription sent. Will reassess again in the spring and discuss continued taper if appropriate. Her symptoms increase or she has any problems she is to call immediately. Assessment & Plan (09/07/2022 10:18 PM CDT): Stable with Wellbutrin XL 300 Assessment & Plan (02/02/2022 9:48 AM WELL HEAD PUMPER): Stable with Wellbutrin XL 150. 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 Discussed other [...] etiology. She has an appoint with Dr. Bbacock, podiatry, and will await her recommendations. Discussed with her utilizing mole skin to create a padding with the donut hole in the middle to try to offload that pressure point until it can be further evaluated. Acne vulgaris 04/14/2019 Assessment & Plan (10/17/2019 10:25 PM CDT): Stable without medication Assessment & Plan (04/14/2019 10:15 PM WELL HEAD PUMPER): Cleocin T Gel to the neck/face as needed. Essential hypertension 08/28/2018 Assessment & Plan (05/15/2024 11:01 PM WELL HEAD PUMPER): Bp is stable/in acceptable range for any [...] medication Assessment & Plan (02/02/2022 9:47 AM WELL HEAD PUMPER): Bp is stable/in acceptable range for any [...] medication Assessment & Plan (04/14/2019 10:14 PM WELL HEAD PUMPER): Stable without medication Assessment & Plan (10/17/2018 [...] 08/28/2018 Assessment & Plan (05/15/2024 11:01 PM WELL HEAD PUMPER): Pre-diabetes/hyperglycemia is a precursor to Dm. Stressed importance of working on diet (decrease your simple sugars and one carbohydrate with each meal) and increase you exercise to achieve weight loss and this will help prevent you from progressing to diabetes. Assessment & Plan (05/15/2024 8:53 PM WELL HEAD PUMPER): Pre-diabetes/hyperglycemia is a precursor to Dm. Stressed [...] and calorie tracking and exercising with personal protection specialist. Assessment & Plan (09/07/2022 10:17 PM CDT): Pre-diabetes/hyperglycemia is a precursor to Dm. Stressed importance of working on diet (decrease your simple sugars and one carbohydrate with each meal) and increase you exercise to achieve weight loss and this will help prevent you from progressing to diabetes. Assessment & Plan (02/02/2022 9:47 AM WELL HEAD PUMPER): Pre-diabetes/hyperglycemia is a precursor to Dm. Stressed [...] diabetes. Assessment & Plan (04/14/2019 10:13 PM WELL HEAD PUMPER): Pre-diabetes is a precursor to Dm. Stressed [...] replaced Assessment & Plan (05/15/2024 11:01 PM WELL HEAD PUMPER): Continue levothyroxine 75 mcg. Monitor labs. Assessment & Plan (05/15/2024 8:52 PM WELL HEAD PUMPER): Continue levothyroxine 75 mcg. Monitor labs. Assessment & Plan (11/19/2023 10:40 AM CDT): Continue levothyroxine 75 mcg. Monitor labs. Assessment & Plan (10/10/2023 10:15 PM CDT): Continue levothyroxine. Monitor labs. Assessment & Plan (06/24/2023 5:35 PM CDT): Check TSH levels and continue Levothyroxine. Assessment & Plan (09/07/2022 10:19 PM CDT): Continue with levothyroxine 75 mcg. Monitor labs Assessment & Plan (02/02/2022 9:47 AM WELL HEAD PUMPER): Continue levothyroxine. Monitor labs. Assessment & Plan (10/05/2021 3:33 PM CDT): Continue levothyroxine. Monitor labs. Assessment & Plan (08/26/2021 12:13 PM CDT): Continue levothyroxine. Monitor labs. Assessment & Plan (06/23/2021 8:57 PM CDT): Continue levothyroxine. Monitor labs. Assessment & Plan (11/25/2020 3:10 PM CDT): Continue levothyroxine. Monitor labs. Assessment & Plan (10/17/2019 10:25 PM CDT): Continue levothyroxine Assessment & Plan (04/14/2019 10:13 PM WELL HEAD PUMPER): Continue replacement. Labs are stable. Assessment & Plan (10/17/2018 12:52 AM CDT): Labs are stable. Continue Levothyroxine. Refills sent Assessment & Plan (08/28/2018 3:08 PM CDT): Check labs. Continue levothyroxine Hyperlipidemia 04/08/2016 Overview (10/09/2020): on statin Assessment & Plan (05/15/2024 11:01 PM WELL HEAD PUMPER): Encouraged patient to follow low fat/low chol diet like the Mediterranean diet. Increase good fats in the diet. Increase exercise. Monitor labs as needed. Continue simvastatin Assessment & Plan (05/15/2024 8:53 PM WELL HEAD PUMPER): Encouraged patient to follow low fat/low chol [...] needed. Assessment & Plan (02/02/2022 9:48 AM WELL HEAD PUMPER): Encouraged patient to follow low fat/low chol [...] 04/03/19 Assessment & Plan (02/11/2023 2:54 PM WELL HEAD PUMPER): Discussed the patient's BMI. The BMI is [...] daily exercise. Patient was concerned because her clinical provider trainer at the gym is quitting. She was advised to exercise in a way that is enjoyable to her. Assessment & Plan (06/24/2023 5:41 PM CDT): Discussed weight loss and mentioned use of GLPs. Encouraged to continue exercise with clinical provider trainer and use of [employer] for calorie tracking. Assessment & Plan (04/04/2023 12:15 AM WELL HEAD PUMPER): Discussed the patient's BMI. The BMI is above average. BMI management plan is completed. BMI Follow-up includes: nutrition counseling, exercise counseling and education provided. Assessment & Plan (02/11/2023 2:55 PM WELL HEAD PUMPER): Discussed the patient's BMI. The BMI is above average. BMI management plan is completed. BMI Follow-up includes: nutrition counseling, exercise counseling and education provided. Assessment & Plan (02/02/2022 9:49 AM WELL HEAD PUMPER): Discussed the patient's BMI. The BMI is [...] daily exercise. Patient was concerned because her clinical provider trainer at the gym is quitting. She was advised to exercise in a way that is enjoyable to her. Assessment & Plan (06/24/2023 5:37 PM CDT): Discussed weight loss and mentioned use of GLPs. Encouraged to continue exercise with clinical provider trainer and use of [employer] for calorie tracking. Assessment & Plan (04/04/2023 12:15 AM WELL HEAD PUMPER): Discussed the patient's BMI. The BMI is above average. BMI management plan is completed. BMI Follow-up includes: nutrition counseling, exercise counseling and education provided. Assessment & Plan (02/02/2022 9:49 AM WELL HEAD PUMPER): Discussed the patient's BMI. The BMI is [...] 10/09/20202024 Assessment & Plan (05/10/2024 9:00 AM WELL HEAD PUMPER): Discussed the patient's BMI. The BMI is above average. BMI management plan is completed. BMI Follow-up includes: nutrition counseling, exercise counseling and education provided. Assessment & Plan (04/26/2024 11:41 AM WELL HEAD PUMPER): Discussed the patient's BMI. The BMI is [...] and education provided. BMI 30.0-30.9,adult 10/09/2020 10/12/19 Assessment & Plan (10/09/2020 4:07 PM CDT): [...] 08/26/2021 Assessment & Plan (01/24/2020 10:14 AM WELL HEAD PUMPER): Advised patient that she and family need [...] 08/26/2021 Assessment & Plan (01/24/2020 10:14 AM WELL HEAD PUMPER): Advised patient that she and family need to quarantine for 2w. She was advised to contact physicians for her family members to discuss testing. She was advised tylenol q6h prn fever. She declines inhaler at this time. She was advised that she will be contacted by [facility] for testing, and she will be notified of results as available. Breast cancer screening by mammogram 04/14/2019 06/24/2023 Assessment & Plan (09/07/2022 10:18 PM CDT): Mammogram order provided Assessment & Plan (10/17/2019 10:26 PM CDT): Mammogram order provided Assessment & Plan (04/14/2019 10:13 PM WELL HEAD PUMPER): Mammogram order provided Sore throat 02/28/2019 02/28/2019 Otitis of right ear 02/28/2019 10/17/19 20 Assessment & Plan (02/28/2019 7:56 PM WELL HEAD PUMPER): Start antibiotic, antihistamine, Mucinex and Steroid nasal [...] screenings. Assessment & Plan (04/14/2019 10:13 PM WELL HEAD PUMPER): Encouraged healthy lifestyle, good nutrition and exercise. [...] 20 Assessment & Plan (02/22/2019 11:20 AM WELL HEAD PUMPER): Weight/BMI is in healthy range. Continue healthy lifestyle to maintain. Assessment & Plan (10/11/2018 1:51 PM CDT): BMI Follow-up includes: Discussed diet and exercising counseling. BMI 28.0-28.9,adult 08/26/2018 05/29/19 21 Assessment & Plan (10/17/2019 10:25 PM CDT): Weight/BMI is in healthy range. Continue healthy lifestyle to maintain. Assessment & Plan (04/14/2019 10:13 PM WELL HEAD PUMPER): Weight/BMI is in healthy range. 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 Not on file Not on file Last Filed Vital Signs Vital Sign Reading Time Taken Comments Blood Pressure 124/82 05/10/2024 8:57 AM WELL HEAD PUMPER Pulse 75 05/10/2024 8:57 AM WELL HEAD PUMPER Temperature 36.4 C (97.6 F) 05/10/2024 8:57 AM WELL HEAD PUMPER Respiratory Rate 20 03/22/2023 11:07 AM WELL HEAD PUMPER Oxygen Saturation 97% 05/10/2024 8:57 AM WELL HEAD PUMPER Inhaled Oxygen Concentration - - Weight 89.5 kg (197 lb 6.4 oz) 05/10/2024 8:57 A M WELL HEAD PUMPER Height 157.5 cm (5' 2) 05/10/2024 8:57 AM WELL HEAD PUMPER Body Mass Index 36.1 05/10/2024 8:57 AM WELL HEAD PUMPER Plan of Treatment Not on file Procedures Procedure Name Priority Date/Time Associated Diagnosis Comments SCREENING MAMMOGRAM 2D BILATERAL Schedule Routine, Read Routine (OP Routine) 02/19/2024 8:51 AM WELL HEAD PUMPER COLONOSCOPY Routine 02/12/2022 9:24 AM WELL HEAD PUMPER from Last 3 Months or Most Recently Relevant to Health Maintenance Results * Screening Mammogram 2D Bilateral (02/19/2024 8:51 AM WELL HEAD PUMPER) Anatomical Region Laterality Modality Breast Bilateral Mammography us Historical Provider IMG MAMMO PROCEDURES Pat l Result * Colonoscopy (02/12/2022 9:24 AM WELL HEAD PUMPER) Anatomical Region Laterality Modality Other us Historical Provider ENDOSCOPY PROCEDURES Edit ed Result - Final from Last 3 Months or Most Recently Relevant to Health Maintenance Insurance [facility] Care Teams Contract Modeler Relationship Specialty Start Date End Date Lori Shaw PA [address] [facility] [address] [place] [address] PCP - General Internal Medicine 08/23/18 Cooper Marquis MD [address] [place] [address] Consulting Physician Rheumatology 08/25/23
--- OUTSIDE RECORDS SUMMARY | 2024-08-15 00:11 | XMS_ITS | Encounter Summary ---
Author Organization [facility] Care Team Providers Care Geosciences Faculty Member Name Role Phone Lori Shaw Primary Care Provider [phone] Cooper Marquis MD Unavailable [phone] Encounter Details Date Type Department Care Team (Latest Contact Info) Description 11/05/2016 Orders Only [facility] CLINCONV ProviderKaz MD [address] [place] [id number] Social History Tobacco Use Types Packs/Day Years Used Date Smoking Tobacco: Never Assessed Comments Unknown Sex and Gender Information Value Date Recorded Sex Assigned at Not on file Legal Sex Female 8:19 AM HEATING AND VENTILATING DRAFTER Gender Identity Not on file Sexual Orientation [...] COVID: Suspected 01/24/2020 01/24/2020 01/26/2020 7:11 AM HEATING AND VENTILATING DRAFTER COVID19 01/24/2020 01/24/2020 02/07/2020 3:07 AM HEATING AND VENTILATING DRAFTER COVID: Recovered Comment:Added based on recent COVID infection. 02/07/2020 03/05/2020 06/06/2020 3:05 AM C DT COVID: Suspected 03/22/2023 03/22/2023 03/22/2023 11:34 AM HEATING AND VENTILATING DRAFTER COVID: Suspected 03/22/2023 03/22/2023 03/22/2023 2:19 PM HEATING AND VENTILATING DRAFTER COVID19 03/22/2023 03/22/2023 04/01/2023 3:05 AM HEATING AND VENTILATING DRAFTER COVID: Recovered Comment:Added based on recent COVID infection. 04/01/2023 04/03/2023 06/30/2023 3:06 AM C DT documented as of this encounter Care Teams Geosciences Faculty Member Relationship Specialty Start Date End Date Lori Shaw PA [address] [facility] [address] [place] [address] PCP - General Internal Medicine 08/23/18 Cooper Marquis MD [facility] [place] [address] Consulting Physician Rheumatology 08/25/23 documented as of this encounter
--- OUTSIDE RECORDS SUMMARY | 2024-08-15 00:11 | XMS_ITS | Encounter Summary ---
Author Organization [facility] Address [address] [place] [address] Care Team Providers Care Manager Online Name Role Phone Lori Shaw Primary Care Provider [phone] Cooper Marquis MD Unavailable [phone] Reason for Visit * Reason Onset Date Comments Vaginal Bleeding 07/13/2024 Encounter Details Date Type Department Care Team (Late st Contact Info) Description 07/13/[address] 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 Requesting advice from clinical steam setter. Additional Comments: Patient states she just started [...] on filedocumented in this encounter Care Teams Manager Online Relationship Specialty Start Date End Date Lori Shaw PA [address] [facility] [address] [place] [address] PCP - General Internal Medicine 08/23/18 Cooper Marquis MD [facility] [place] [address] Consulting Physician Rheumatology 08/25/23 documented as of this encounter
--- OUTSIDE RECORDS SUMMARY | 2024-08-15 00:11 | XMS_ITS | Encounter Summary ---
Author Organization [facility] Facility Care Team Providers Care Nuclear Medicine Chief Technologist Name Role Phone Lori Shaw Primary Care Provider [phone] Cooper Marquis MD Unavailable [phone] Encounter Details Date Type Department Care Team (Latest Contact Info) Description 02/24/2018 Orders Only [facility] CLINCONV ProviderKaz MD [address] [place] [address] Social History Tobacco Use Types Packs/Day Years Used Date Smoking Tobacco: Never Assessed Comments Unknown Sex and Gender Information Value Date Recorded Sex Assigned at Not on file Legal Sex Female 8:19 AM STAND UP COMEDIAN Gender Identity Not on file Sexual Orientation Not on file documented as of this encounter Plan of Treatment Not on file documented as of this encounter Procedures Procedure Name Priority Date/Time Associated Diagnosis Comments PROCEDURE - RESULT 02/23/2018 12 :00 AM STAND UP COMEDIAN documented in this encounter Results * PROCEDURE - RESULT (02/23/2018 12:00 AM STAND UP COMEDIAN) Narrative 02/23/2018 12:00 AM STAND UP COMEDIAN Ordered by an unspecified provider. Historical Provider Final Res ult documented in this encounter Visit Diagnoses Not on filedocumented in this encounter Additional Health Concerns Infection Onset Date Last Indicated Resolved Time COVID: Suspected 01/24/2020 01/24/2020 01/26/2020 7:11 AM STAND UP COMEDIAN COVID19 01/24/2020 01/24/2020 02/07/2020 3:07 AM STAND UP COMEDIAN COVID: Recovered Comment:Added based on recent COVID infection. 02/07/2020 03/05/2020 06/06/2020 3:05 AM C DT COVID: Suspected 03/22/2023 03/22/2023 03/22/2023 11:34 AM STAND UP COMEDIAN COVID: Suspected 03/22/2023 03/22/2023 03/22/2023 2:19 PM STAND UP COMEDIAN COVID19 03/22/2023 03/22/2023 04/01/2023 3:05 AM STAND UP COMEDIAN COVID: Recovered Comment:Added based on recent COVID infection. 04/01/2023 04/03/2023 06/30/2023 3:06 AM C DT documented as of this encounter Care Teams Nuclear Medicine Chief Technologist Relationship Specialty Start Date End Date Lori Shaw PA [address] [facility] [address] [place] [address] PCP - General Internal Medicine 08/23/18 Cooper Marquis MD [facility] [place] [address] Consulting Physician Rheumatology 08/25/23 documented as of this encounter
--- OUTSIDE RECORDS SUMMARY | 2024-08-15 00:11 | XMS_ITS | Clinical Summary ---
Author Organization [facility] [employer] Address [address] [facility] [place] [address] Care Team Providers Care Laser Engraver Name Role Phone Unavailable Primary Care Provider Unavailabl e Source Comments [facility],non-owned Affiliates and Associated Physician Practices is amultiple site organization consisting of ambulatory clinics and hospital sitesin [place], [place], [place] and [place]. This disclosure is being madepursuant to the Care Everywhere program and may not contain all information available regarding this patient. Last updated 17.[facility] [employer] Allergies Active Allergy Reactions Criticality Noted Date [...] P M CDT Height 157.5 cm (5' 2) 10/05/2020 9:53 PM CDT Body Mass Index [...] patient's age to complete this topic Insurance [facility]
--- NOTE | 2024-08-15 07:33 | WPDHPUPDATE1 ---
History and Physical Update Update Date/Time: 08/15/24 07:33 History and Physical has been reviewed, including an updated exam of the patient. There are NO changes in the patient's condition. Risks, benefits, and alternatives have been discussed and questions answered. Patient agrees to proceed with procedure.
--- NOTE | 2024-08-15 07:34 | PM.HPGS ---
History of Present Illness History of Present Illness Consent: Risks, benefits, and alternatives have been discussed and questions answered. Patient agrees to proceed with procedure. Chief complaint: abnormal uterine bleeding Narrative: Sidra Coe is a 49 year old female with irregular bleeding starting in August of 2023. Patient had 1 irregular cycle 19 days apart. Bleeding remained normal and still July of 2024 when she again had bleeding to closed together the 10 days apart. It was recommended to proceed with D&C hysteroscopy. Risks of infection, bleeding, perforation, and possible pathology are discussed. Patient voices understanding and agrees to proceed. Review of Systems Review of Systems: not repeated day of surgery; patient states no changes in status PMFSH Past Medical History Medical History (Updated 08/15/24 @ 07:37 by Mira Granado MD) (normal spontaneous vaginal delivery) Depression Diabetes Diet-controlled Elevated cholesterol Raynauds disease Hypothyroid Surgical History Surgical History (Updated 08/15/24 @ 07:37 by Mira Granado MD) History of bilateral tubal ligation With 3rd History of X2 Social History Social History Smoking status: Never smoker Living arrangements: with family Spiritual care concerns: No Meds Home Medications and Allergies Home Medications ?Medication ?Instructions ?Recorded ?Confirmed ?Type bupropion HCl 300 mg 24 hr tablet, 300 mg PO DAILY 08/04/24 08/04/24 History extended release duloxetine 30 mg capsule,delayed 30 mg PO BID 08/04/24 08/04/24 History release levothyroxine 75 mcg tablet 75 mcg PO DAILY 08/04/24 08/04/24 History pajbhjdx-vcvamkf-njmc-iron 18 1 tablet PO DAILY 08/04/24 08/04/24 History mg-FA 400 mcg-vit K 25 mcg tablet simvastatin 10 mg tablet 10 mg PO DAILY 08/04/24 08/04/24 History Allergies Allergy/AdvReac Type Severity Reaction Status Date / Time No Known Allergies Allergy Unverified 08/04/24 09:43 Exam Const: General: healthy appearing and alert Orientation/consciousness: patient oriented x3 Resp: Effort & Inspection: normal respiratory effort : External Female Exam: normal external appearance Speculum Exam - Vagina: normal appearance of the vagina and normal vaginal discharge Speculum Exam - Cervix: normal appearance of the cervix Bimanual exam- vagina & uterus: uterine size normal and consistency normal Bimanual Exam- Adnexa, other: normal adnexae and No adnexal tenderness Neuro: General: patient oriented x3 Assessment and Plan Assessment and plan (1) Irregular menses: Code(s): N92.6 - Irregular menstruation, unspecified Status: Acute Assessment and Plan: Plan to proceed with D&C hysteroscopy
[2024-08-15 08:29] LABS: Glucose Point of Care 137 mg/dl (65-105)
[2024-08-15 08:30] VITALS: BP 131/86; PULSE 91; RESP 14; TEMP 36.3; O2SAT 99
[2024-08-15] MEDS: LACTATED RINGERS 1,000 ML 30 ML IV CONT (08:30)
[2024-08-15] MEDS: ACETAMINOPHEN 500 MG TABLET 1000 MG PO (08:30)
[2024-08-15 08:40] LABS: BEDSIDEPREGUCG Negative (Negative)
--- NOTE | 2024-08-15 09:10 | P.PNAN_ITS ---
Anes - Initial Pre Proc Eval Procedure: Operation Date: 08/15/24 09:45 Proposed Procedures p Hysteroscopy Dilation and Curettage - Mira Granado MD Date/Time: 08/15/24 09:10 Surgeon: Mira Granado MD Pre Op Diagnosis: abnormal uterine bleeding Patient Data Age: 49 Gender: F Height: 1.57 m Weight: 91.2 kg Last Vital Signs Temp 36.3 C L 08/15/24 08:30 Pulse 91 08/15/24 08:30 Resp 14 08/15/24 08:30 BP 131/86 08/15/24 08:30 Pulse Ox 99 08/15/24 08:30 O2 Del Method Room Air 08/15/24 08:30 Allergies Allergy/AdvReac Type Severity Reaction Status Date / Time No Known Allergies Allergy Verified 08/15/24 08:52 Home Medications ?Medication ?Instructions ?Recorded ?Confirmed ?Type bupropion HCl 300 mg 24 hr tablet, 300 mg PO DAILY 08/04/24 08/04/24 History extended release duloxetine 30 mg capsule,delayed 30 mg PO BID 08/04/24 08/04/24 History release levothyroxine 75 mcg tablet 75 mcg PO DAILY 08/04/24 08/15/24 History oquemkmt-rjdmecw-illw-iron 18 1 tablet PO DAILY 08/04/24 08/15/24 History mg-FA 400 mcg-vit K 25 mcg tablet simvastatin 10 mg tablet 10 mg PO DAILY 08/04/24 08/04/24 History Laboratory Tests 08/15/24 08/15/24 08:26 08:30 POC Capillary Glucose 137 H mg/dl (65-105) POC Urine HCG, Qual Negative (Negative) Patient hx anesthesia problems: none Family hx anesthesia problems: none Results Review: All pre-operative results and documents have been reviewed as part of the pre-operative evaluation. [facility] Past Medical History Medical History (normal spontaneous vaginal delivery) Depression Diabetes Diet-controlled Elevated cholesterol Raynauds disease Hypothyroid Surgical History Surgical History History of bilateral tubal ligation With 3rd History of X2 Social History Social History Smoking status: Never smoker Living arrangements: with family Spiritual care concerns: No Anes - Eval Final PreProcedure Day of Procedure 08/15/24 09:10 Patient weight: obese Heart: regular rate and rhythm Lungs: clear to auscultation Airway: Mallampati scale class II Neurological: alert and oriented Last oral intake: >/= 8 hours ASA classification: III Emergent: no Anesthetic plan: proceed Anesthesia type and monitoring: general GIVS and standard monitoring Results Review: All pre-operative results and documents have been reviewed as part of the pre- operative evaluation. Informed Consent: The patient's anesthetic plan and its attendant risks and benefits were discussed with the patient/family/POA. Questions were solicited and answers provided to the satisfaction of the patient/family/POA.
--- NOTE | 2024-08-15 09:50 | S_PTH ---
PATIENT: Sidra Coe LOC: [facility] U#:[id number] AGE/SX: 49/F ROOM: RE08/15/[address]: Mira Granado MD : 1975 BED: DIS: 08/15/2024 SPEC #: [id number] RECD: 08/15/24 10:20 STATUS: ALE REJohn #: [id number] BIENVENIDO: 08/15/24 09:[address]: Mira Granado DEPT: [facility] Surgical RECD BY: Adrianna Pal ENTERED: 08/15/24 10:21 SP TYPE: Surgical OTHR DR: Lori Shaw, PA Tissues: A - Endometrial Curettings Procedures: Hematoxylin and Eosin Stain Gross and Microscopic Level 4
[2024-08-15] MEDS: KETOROLAC 30 MG/ML VIAL (*BKC) IV PUSH (09:51)
[2024-08-15 10:00] VITALS: BP 134/69; PULSE 76; RESP 18; O2SAT 95
--- NOTE | 2024-08-15 10:01 | W.PM.PROC2 ---
Procedure Note - Detailed Date of Procedure 08/15/24 Pre-op Diagnosis abnormal uterine bleeding Post-op Diagnosis Same Procedure Performed D&C hysteroscope Surgeon Mira Granado MD Anesthesia MAC Findings Cervix is stenotic. Uterus sounds to 9cm. Uterus appears grossly normal with some bleeding. Description of Procedure The patient was taken to the operating room and placed under anesthesia in the dorsal lithotomy position. She was prepped and draped in the usual sterile fashion. Stinnett speculum was placed in the vagina. The cervix was grasped on the anterior lip with a tenaculum. The uterus was attempted to be sounded and internal cervical stenosis is encountered. The Hegar dilator was able to enter the os. The uterus was then able to be sounded to 9cm. Upon attempting to place the hysteroscope it would not pass the internal os. The cervix was then dilated to a 5 Hegar. The hysteroscope was then placed and with no abnormalities noted it is removed. The uterus is sharply curetted until a good uterine cry was noted in all areas. All instruments are removed. Sponge, needle, instrument counts are correct per the OR staff. The patient was taken to the recovery room in stable condition. Estimated Blood Loss 5 Drains No Packing No Pathology Yes (Endometrial curettings) Complications No immediate complications Condition Stable Disposition PACU
[2024-08-15 10:23] LABS: Glucose Point of Care 90 mg/dl (65-105)
[2024-08-15 10:30] VITALS: BP 120/61; PULSE 77; O2SAT 93
[2024-08-15 10:50] VITALS: BP 133/80; PULSE 72
== END 2024-08-15 11:05 | disposition home or self-care (01) ==
PROVIDERS: PCP Physician Assistant; Visit Provider Obstetrics & Gynecology Gynecology
PROC: 0U5B8ZZ Destruction of Endometrium, Via Natural or Artificial Opening Endoscopic (ICD-10-PCS; CPT 58563; principal; 2024-08-15 09:45)
DX: N88.2 Stricture and stenosis of cervix uteri (principal); F32.A Depression, unspecified; E11.9 Type 2 diabetes mellitus without complications; E78.00 Pure hypercholesterolemia, unspecified; E03.9 Hypothyroidism, unspecified; I73.00 Raynaud's syndrome without gangrene; E66.9 Obesity, unspecified; Z68.36 Body mass index [BMI] 36.0-36.9, adult; Z98.890 Other specified postprocedural states; Z98.51 Tubal ligation status
CPT/HCPCS: 58558; 82948; 88305; A9270; J1885; J2003; J2250; J2704; J3010; J7120

== ENCOUNTER 2024-08-17 09:17 | Outpatient (CLI) | payer OTHER, SELFPAY ==
--- NOTE | ~2024-08-17 | MMUS_ITS ---
EXAMINATION: MM diagnostic nellie RT w danuta, US breast RT limited INDICATION: 49-year old female; BI-RADS 3, short-term follow-up right breast mass and asymmetries. COMPARISON: 02/17/2024 and 01/19/2024 TECHNIQUE: Digital breast tomosynthesis True lateral and spot compression CC and MLO views of the RIG HT breast were obtained with computer-aided detection to assist in interpretation of the study. FINDINGS: There are scattered areas of fibroglandular density. Previously reported cluster of nodular asymmetries in the medial breast are smaller and less obvious on this current examination. There are no suspicious calcifications or architectural distortion. RIGHT BREAST ULTRASOUND FINDINGS: Targeted evaluation of the area of concern was completed. Previously reported cyst at 3:00, 3 cm from the nipple is smaller in size measuring 0.3 x 0.2 x 0.3 cm (prior measurement 0.5 x 0.6 x 0.7 cm). No other suspicious sonographic abnormalities identified. IMPRESSION: Resolving Benign RIGHT breast cyst correlates to area of mammographic finding. No further investigati on necessary. No other suspicious mammographic or sonographic abnormality identified. RECOMMENDATION: ANNUAL SCREENING BILATERAL MAMMOGRAPHY BI-RADS 2, BENIGN Reviewed, dictated and finalized at location B. IMPRESSION: Resolving Benign RIGHT breast cyst correlates to area of mammographic finding. No further investigation necessary. No other suspicious mammographic or sonographic abnormality identified. RECOMMENDATION: ANNUAL SCREENING BILATERAL MAMMOGRAPHY BI-RADS 2, BENIGN
== END 2024-08-17 09:18 | disposition home or self-care (01) ==
LOC: MICIMG 09:19
PROVIDERS: PCP Physician Assistant; Visit Provider Obstetrics & Gynecology Gynecology
DX: N60.01 Solitary cyst of right breast (principal); R92.8 Other abnormal and inconclusive findings on diagnostic imaging of breast
CPT/HCPCS: 76642; 77061; 77065; G0279

== ENCOUNTER 2025-01-06 12:46 | Outpatient (CLI) | payer OTHER, SELFPAY ==
--- NOTE | ~2025-01-06 | MR_ITS ---
EXAMINATION: MR foot RT wo/w con DATE: 01/06/2025 13:59 INDICATION: Metatarsalgia the right foot TECHNIQUE: Magnetic resonance imaging (MRI) of the right fore/mid foot was performed without intravenous contrast. Sequences included sagittal T1-weighted FSE, sagittal fluid sensitive FSE STIR, coronal PD-weighted FS FSE, coronal T1- weighted FSE, axial PD-weighted FS FSE, and axial PD-weighted FSE. COMPARISON: 03/06/2021 FINDINGS: Bone alignment is normal. No fracture or pathologic marrow replacing process. 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 Additional mild osteoarthritis at the first metatarsophalangeal joint and the second-fourth tarsometatarsal joints. There appears be new mild diffuse joint space narrowing at the second metatarsophalangeal joint with moderate surrounding enhancing synovitis which is new since the prior study. Remaining joint spaces appear relatively preserved. Visualized portions of the flexor and extensor tendons are normal. The Lisfranc ligament complex as well as the latera l ligament complex at the intertarsal phalangeal and interphalangeal joints are normal. No asymmetric atrophy or abnormal signal of the intrinsic musculature of the foot. No abnormally enhancing masses identified. IMPRESSION: 1. 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 The diffuse mild joint space narrowing and moderate surrounding synovitis which is new since the prior study. This could be due to osteoarthritis or other inflammatory arthritis including rheumatoid reactive arthritis, arthritis related to gout or other encroachment arthropathy or septic arthritis in the appropriate clinical setting. Reviewed, dictated and finalized at location A. IMPRESSION: 1. 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 The diffuse mil d joint space narrowing and moderate surrounding synovitis which is new since t he prior study. This could be due to osteoarthritis or other inflammatory arthr itis including rheumatoid reactive arthritis, arthritis related to gout or othe r encroachment arthropathy or septic arthritis in the appropriate clinical sett ing.
== END 2025-01-06 12:47 | disposition home or self-care (01) ==
LOC: MICIMG 12:48
PROVIDERS: PCP Physician Assistant; Visit Provider Podiatrist Foot & Ankle Surgery
DX: M77.41 Metatarsalgia, right foot (principal); M19.071 Primary osteoarthritis, right ankle and foot; M65.971 Unspecified synovitis and tenosynovitis, right ankle and foot; M25.571 Pain in right ankle and joints of right foot
CPT/HCPCS: 73720; A9577

== ENCOUNTER 2025-01-25 10:39 | Outpatient (CLI) | payer OTHER, SELFPAY ==
--- NOTE | ~2025-01-25 | MM_ITS ---
EXAMINATION: MM screening [facility] BI w danuta HISTORY: Screening TECHNIQUE: Craniocaudal and mediolateral oblique 3-D tomosynthesis images were obtained and synthetic 2-D images were generated. CAD analysis was submitted and interpreted. COMPARISON: Comparison to multiple prior studies sequentially, with oldest reviewed study dated 12/04/2022. BREAST PARENCHYMAL COMPOSITION: Not dense: There are scattered areas of fibroglandular density. FINDINGS: There is no evidence of suspicious mass, calcification, or architectural distortion to suggest malignancy in either breast. There has been no suspicious interval change. IMPRESSION: 1. No mammographic evidence of malignancy. 2. Recommend routine screening mammography in one year. BI-RADS Category 1: Negative Reviewed, dictated and finalized at location B. [place]
== END 2025-01-25 10:40 | disposition home or self-care (01) ==
LOC: MICIMG 10:40
PROVIDERS: PCP Obstetrics & Gynecology Gynecology; Visit Provider Physician Assistant
DX: Z12.31 Encounter for screening mammogram for malignant neoplasm of breast (principal)
CPT/HCPCS: 77063; 77067